=== PATIENT | female | born 1990 | race Caucasian/White ===

== ENCOUNTER → 2016-10-18 | Outpatient (CLI) | payer OTHER ==
[~2016-10-18] MED LIST: IBUP-103 PO; SPIR50TA2 PO
[2016-10-18 19:09] LABS: URINE APPEARANCE CLOUDY (CLEAR); URINE BILIRUBIN NEG (NEG); URINE COLOR YELLOW; URINE EPITHELIAL CELL AUTO >30 /lpf (0-5); URINE NITRITE POS (NEG); URINE SPECIFIC GRAVITY 1.024 (1.000-1.030); UROBILINOGEN NEG (NEG)
[2016-10-18 19:11] LABS: MANUAL MICROSCOPIC REQUIRED? NO; REVIEW REQ? NO
== END | disposition home or self-care (01) ==
LOC: C.LAB 17:11
PROVIDERS: ATTEND Obstetrics & Gynecology
DX: R30.0 Dysuria (principal)

== ENCOUNTER 2017-01-16 18:44 | Emergency (ER) | payer OTHER ==
[~2017-01-16] VITALS: Ht 162.6 cm; Wt 52.4 kg
[2017-01-16 18:59] VITALS: TEMP 36.7; Ht 162.6 cm; Wt 52.4 kg
--- NOTE | 2017-01-16 19:33 | DIAGNOSTIC IMAGING REPORT ---
CT OF THE HEAD WITHOUT CONTRAST CLINICAL HISTORY: Right side head injury, tinnitus. COMPARISON STUDY: No previous studies for comparison. CT DOSE: 537.48 mGy.cm TECHNIQUE: Helical axial images of the head were obtained without IV contrast. Automated exposure control was utilized for the study. FINDINGS: No acute intracranial hemorrhage, midline shift or mass effect is present. Ventricular system is normal. Basilar cisterns are patent. There are no extra-axial collections. Maldonado-white differentiation is maintained. There are no findings to suggest acute dural sinus thrombosis or acute territorial infarct. There is no calvarial fracture. IMPRESSION: 1. No acute intracranial findings. 2. No calvarial fracture. Electronically signed by: Joel West M.D. 01/16/2017 7:32 PM Dictated Date/Time: 01/16/2017 7:28 PM
--- NOTE | 2017-01-16 19:55 | EMERGENCY ROOM VISIT NOTE ---
ED Visit Note First contact with patient: 19:09 CHIEF COMPLAINT: Head injury HISTORY OF PRESENT ILLNESS: This 6-year-old female patient presented to the emergency department ambulatory, one day after receiving a head injury. The patient states last evening, she was mowing the grass with a push mower. She states there is a golf ball in the high grass, which got Up by the mower. She states the golfball flew into a tree, then came down and hit her on the right side of the head. The patient denies loss of consciousness, dizziness, lightheadedness, nausea, vomiting, or blurry vision. She states last evening, she felt "fuzzy". She states today, she has been feeling better, however her ears feel full and she is experiencing ringing in her ears. The headache has been constant, however she states the biggest concern is the ringing in her ears. The patient complains of sided, muscular neck pain, worse with turning her head to the right. She states the discomfort radiates into her right shoulder. The patient has taken Advil for the pain with minimal relief. The patient rates the pain as 6/10. The patient denies bowel or bladder dysfunction. The patient denies any other injuries. The patient states she is here for piece of mind that she does not have a brain bleed due to her symptoms. REVIEW OF SYSTEMS: A 10-system review of systems was performed with positives and pertinent negatives listed in the history of present illness. All other systems were reviewed and are negative. ALLERGIES: Tramadol MEDICATIONS: None PMH: None SOCIAL HISTORY: The patient lives locally with her family. She denies drug, alcohol, tobacco use. PHYSICAL EXAM: Vital Signs: Reviewed Nurse's notes, vital signs stable. GENERAL : 26-year-old female, in no acute distress, well-developed, well-nourished. NEURO: The patient is alert, oriented to person place and time, and coherent. Normal mini mental status exam. Negative Romberg and pronator drift. Cerebellar function intact. HEAD: Normocephalic, atraumatic. The patient does complain of tenderness on the right side, just anterior to the right ear. EYES: Pupils are equal round and reactive to light and accommodation. EOMs are full and optic discs and fundi are normal. There is no swelling or discoloration of the tissue surrounding the eyes. EARS: External auditory canals clear without blood. TM pearly osullivan. No hemotympanum. NOSE: Patent without tenderness. No septal hematoma. FACE: No facial bone tenderness. NECK: Supple. There is no cervical spine tenderness. There is right-sided cervical paraspinous muscle tenderness. The patient does have mild tenderness with movement of the neck. RADIOLOGY: CT Scan Head: FINDINGS: No acute intracranial hemorrhage, midline shift or mass effect is present. Ventricular system is normal. Basilar cisterns are patent. There are no extra-axial collections. Maldonado-white differentiation is maintained. There are no findings to suggest acute dural sinus thrombosis or acute territorial infarct. There is no calvarial fracture. IMPRESSION: 1. No acute intracranial findings. 2. No calvarial fracture. ED COURSE: I examined the patient. CT scan of the head was ordered , reviewed by myself and interpreted by radiologist. CT was negative for fracture or acute intracranial hemorrhage. I discussed these results with the patient and her at bedside. I discussed discharge instructions. The patient was discharged home in good condition ambulatory. DIFFERENTIAL DIAGNOSIS: Intracranial hemorrhage, skull fracture, TM rupture, tinnitus, headache, migraine, closed head injury or concussion, and others. DIAGNOSIS: Head injury, tinnitus DISCHARGE INSTRUCTIONS: You have been treated in the Emergency Department for a Closed Head Injury. CT Scan of your head/brain demonstrated no acute bleeding or other abnormalities. This does not completely rule out the risk for future damage to the brain. For pain control, you can use the following auds-cwo-daykbci medicines (if >12 yo): - Regular strength (325mg/tab) Tylenol (acetaminophen) 2 tabs every 4-6 hours as needed. Do not exceed 9 tablets in a 24 hour period. Avoid taking more than 3 grams (3000 mg) of Tylenol per day. This includes any other sources of acetaminophen you may take on a regular basis. - Regular strength (200 mg/tab) Advil (ibuprofen) 2-3 tabs every 4-6 hours as needed. Do not exceed a dose of 3200 mg per day. You may consider taking Benadryl or another antihistamine such as Zyrtec as directed on the packaging for tinnitus. You should relax in a quiet, dark place for the rest of the day. Avoid any possible triggers including: cigarette smoke, caffeine, nicotine, chocolate, wine, beer, loud noises or music, or bright lights. You should schedule a follow-up appointment in 2-3 days with your Primary Care Provider or established Neurologist for further evaluation and treatment of your Headache. Please avoid excessive physical activity until you're symptom free for at least 24 hours. You should speak with your PCP regarding return to physical activity. Return to the Emergency Department if your current symptoms worsen despite treatment course outlined above, or if you develop any of the following symptoms : intractable pain despite aforementioned treatment course, visual disturbances , loss of vision, unilateral weakness or facial drooping, slurring of speech, loss of coordination, or loss of consciousness. Current/Historical Medications No Active Prescriptions or Reported Meds Allergies Coded Allergies: Tramadol (Verified Allergy, Intermediate, ITCHING, 01/16/17) Vital Signs Date Time Temp Pulse Resp B/P (MAP) Pulse Ox O2 Delivery O2 Flow Rate FiO2 01/16/17 19:57 76 18 98/53 98 Room Air 01/16/17 18:59 36.7 85 18 120/83 100 Room Air Departure Information Impression Primary Impression: Closed head injury Additional Impression: Tinnitus of both ears Dispostion Home / Self-Care Condition GOOD Prescriptions No Active Prescriptions or Reported Meds Referrals Burt Dewitt D.O. (PCP) Patient Instructions ED Head Injury Closed, [facility], Tinnitus Additional Instructions You have been treated in the Emergency Department for a Closed Head Injury. CT Scan of your head/brain demonstrated no acute bleeding or other abnormalities. This does not completely rule out the risk for future damage to the brain. For pain control, you can use the following attz-mqt-rdxfiyp medicines (if >12 yo): - Regular strength (325mg/tab) Tylenol (acetaminophen) 2 tabs every 4-6 hours as needed. Do not exceed 9 tablets in a 24 hour period. Avoid taking more than 3 grams (3000 mg) of Tylenol per day. This includes any other sources of acetaminophen you may take on a regular basis. - Regular strength (200 mg/tab) Advil (ibuprofen) 2-3 tabs every 4-6 hours as needed. Do not exceed a dose of 3200 mg per day. You may consider taking Benadryl or another antihistamine such as Zyrtec as directed on the packaging for tinnitus. You should relax in a quiet, dark place for the rest of the day. Avoid any possible triggers including: cigarette smoke, caffeine, nicotine, chocolate, wine, beer, loud noises or music, or bright lights. You should schedule a follow-up appointment in 2-3 days with your Primary Care Provider or established Neurologist for further evaluation and treatment of your Headache. Please avoid excessive physical activity until you're symptom free for at least 24 hours. You should speak with your PCP regarding return to physical activity. Return to the Emergency Department if your current symptoms worsen despite treatment course outlined above, or if you develop any of the following symptoms : intractable pain despite aforementioned treatment course, visual disturbances , loss of vision, unilateral weakness or facial drooping, slurring of speech, loss of coordination, or loss of consciousness. Problem Qualifiers Primary Impression: Closed head injury Encounter type: initial encounter Qualified Codes: S09.90XA - Unspecified injury of head, initial encounter
[2017-01-16 19:57] VITALS: BP 98/53; PULSE 76; O2SAT 98
== END 2017-01-16 20:05 | disposition home or self-care (01) ==
LOC: C.EDB 18:45 → C.EDD 20:05
DX: S09.90XA Unspecified injury of head, initial encounter (principal); H93.13 Tinnitus, bilateral; W22.8XXA Striking against or struck by other objects, initial encounter; Y93.H9 Activity, other involving exterior property and land maintenance, building and construction; Y99.8 Other external cause status

== ENCOUNTER 2019-12-10 18:59 | Inpatient (IN) ==
[2019-12-10] MEDS ORDERED: OXYTOCIN 30 UNITS/500 ML BAG IV PRN ×2 (19:51)
--- NOTE | 2019-12-10 19:54 | Labor Progress Brief Note ---
Date of Service December 10, 2019 Subjective 29yo at 38 6/7 for riley bulb insertion prior to planned IOL tomorrow AM. Elective due to maternal discomfort. No c/o on arriving. Assessment & Plan (1) : Elective IOL with inadvertent AROM during riley balloon placement. Riley removed, patient to undergo IOL with pitocin at this point as [place] relatively favorable. Patient in agreement. Epidural on request. Weeks of gestation: 27 weeks Qualified Code(s): Z3A.27 - 27 weeks gestation of Physical Exam Physical Exam: FHT Cat 1. [place] rare ctx. Cvx 2/80/-2. Riley placed through cervix and SROM occurred for clear fluid. Riley removed. Patient advised of rupture and recommendation for admission with IOL to begin overnight. She is agreeable. Results & Data Vital Signs (Past 12 Hours) Vital Signs Temp Pulse Resp BP 12/10/19 19:37 98.6 F 18 12/10/19 19:08 18 12/10/19 19:04 92 H 123/85 Coding Level of Care Code None Diagnoses Z3A.27 Weeks of gestation: 27 weeks
[2019-12-10 20:15] LABS: Hematocrit (blood only) 38.6 % (37-47); Mean Corpuscular Hemoglobin 32.4 pg (25-34); Mean Corpuscular Volume 96.3 fL (80-100); Platelet Count 196 K/uL (130-400); RDW Coefficient of Variation 13.1 % (11.5-14.5); RDW Standard Deviation 45.5 fL (36.4-46.3); Red Blood Count 4.01 M/uL (4.2-5.4); White Blood Count 10.22 K/uL (4.8-10.8)
[2019-12-10] MEDS ORDERED: PROMETHAZINE HCL 6.25 MG in SODIUM CHLORIDE 0.9% 50 ML IV PRN (20:16)
[2019-12-10] MEDS ORDERED: NALBUPHINE HCL INJ 10 MG/ML AMP IV PRN (20:16)
[2019-12-10] MEDS ORDERED: ONDANSETRON INJ 2 MG/ML 2 ML VIAL IV PRN (20:16)
[2019-12-10] MEDS: LACTATED RINGER'S 1,000 ML IV PRN (20:16)
[2019-12-10] MEDS ORDERED: NALOXONE HCL 1 MG in SODIUM CHLORIDE 0.9% 1000ML 1,000 ML IV PRN (20:16)
[2019-12-10] MEDS ORDERED: DiphenhydrAMINE HCL 50 MG/ML VIAL IV PRN (20:16)
[2019-12-10] MEDS ORDERED: ePHEDrine sulfate 50 MG/ML AMP IV PRN (20:16)
[2019-12-10] MEDS ORDERED: NALOXONE HCL 0.4 MG/1 ML VIAL/CARP IV PRN (20:16)
[2019-12-10] MEDS ORDERED: fentaNYL 2MCG/ML ROPIV 1.25MG/ML 100 ML BAG EPI PRN (20:16)
--- NOTE | 2019-12-10 20:16 | Anesthesiology Consultation ---
Date of Service December 10, 2019 Assessment & Plan (1) Encounter for pre-operative examination: Chart Review Chart Review: Acceptable Risk for Surgery and Patient NOT seen in Pre Admission Testing Consults Requested none ASA ASA2 Proposed Anesthesia Anesthesia Type: Labor Epidural Risk / Benefits Reviewed With: PT / POA / Parent / Guardian, Accepts Plan and Informed Consent Obtained History Height/Weight Height: 5 ft 4 in Weight: 58.967 kg Allergies Allergy/AdvReac Type Severity Reaction Status Date / Time tramadol Allergy Intermediate ITCHING Verified 12/09/19 09:21 Medications Home Medications Medication Instructions Recorded Confirmed Last Taken PNV cmb#95-ferrous fumarate-FA 1 tab PO QAM 11/02/18 12/10/19 12/09/19 20:00 [] cholecalciferol (vitamin D3) 4,000 unit PO QAM 07/11/19 12/10/19 12/10/19 08:00 [Vitamin D3] magnesium oxide 200 mg PO QAM 07/11/19 12/10/19 12/10/19 08:00 riboflavin (vitamin B2) [Vitamin 0 mg PO QAM 09/22/19 12/10/19 12/10/19 08:00 B-2] NPO Date Last Intake of Fluids: 12/10/19 Time Last Intake of Fluids: 12:00 Date Last Intake of Solids: 12/10/19 Time Last Intake of Solids: 12:00 Past Medical History Medical History Contusion of foot (Resolved) Encounter for cosmetic surgery (Inactive) size inconsistent with dates H/O acne vulgaris (Inactive) H/O renal calculi Hx of migraines (Resolved) Hypokalemia Migraine without aura Right hip pain (Resolved) Exercise / Class Metabolic Activity II 4-5 Yardwork/Stairs/Walk up hill Past Family History Family History Grandmother (Maternal) Diabetes Hypertension Spwbj-Vyhepksqv-Vwpvd (WPW) pattern Grandmother (Paternal) Hypertrophic cardiomyopathy Stroke Father Hypertension Dyslipidemia Mitral valve prolapse Other No pertinent family history in first degree relatives Past Surgical History Surgical History H/O breast augmentation Past Anesthesia History No Hx of Anesthesia Complications and No Family Hx of Anesthesia Complications History of PONV No Hx of PONV and No Hx of Motion Sickness Social History Smoking Status: Never smoker Hx Alcohol Use: No Hx Substance Use: No substance use type: does not use Physical Exam Vital Signs Last Vital Signs Temp 37.0 C 12/10/19 19:37 Pulse 92 H 12/10/19 19:04 Resp 18 12/10/19 19:37 BP 123/85 12/10/19 19:04 ENMT Mouth: no dentition abnormality Thyromental Distance: > or= 3.5 Finger Breadths Mallampati Class: II Neck normal visual inspection Respiratory normal respiratory effort Auscultation: lungs clear to auscultation bilaterally Cardiovascular Rate/Rhythm: regular rate and regular rhythm Psychiatric Orientation: alert
[2019-12-10] MEDS ORDERED: BUPIVACAINE 0.25% 30 ML VIAL ONE (20:47)
[2019-12-10] MEDS ORDERED: ePHEDrine sulfate 50 MG/ML AMP ONE (20:47)
[2019-12-10] MEDS ORDERED: fentaNYL citrate 100 MCG/2 ML VIAL ONE (20:47)
[2019-12-10] MEDS ORDERED: fentaNYL 2MCG/ML ROPIV 1.25MG/ML 100 ML BAG EPI ONE (20:48)
[2019-12-10 21:00] LABS: Mean Corpuscular Hgb Conc 33.7 g/dL (32-36)
[2019-12-11] MEDS: LACTATED RINGER'S 1,000 ML IV PRN ×2 (00:03→08:21)
--- NOTE | 2019-12-11 01:51 | Labor Progress Brief Note ---
Date of Service December 11, 2019 Subjective Comfortable with epidural. Assessment & Plan (1) : Elective IOL, continue curr mgmt. Weeks of gestation: 27 weeks Qualified Code(s): Z3A.27 - 27 weeks gestation of Physical Exam Physical Exam: FHT Cat 1 [place] Q2 Pit @ 9 Cvx deferred. Results & Data Vital Signs (Past 12 Hours) Vital Signs Temp Pulse Resp BP Pulse Ox 12/11/19 01:48 67 96/72 L 12/11/19 01:47 84 100 12/11/19 01:42 88 100 12/11/19 01:36 69 100 12/11/19 01:34 65 109/60 12/11/19 01:31 51 L 99 12/11/19 01:26 53 L 99 12/11/19 01:21 52 L 99 12/11/19 01:19 50 L 95/60 L 12/11/19 01:16 52 L 99 12/11/19 01:11 59 L 99 12/11/19 01:06 58 L 100 12/11/19 01:05 61 105/55 L 12/11/19 01:01 62 18 100 12/11/19 01:00 97.7 F 18 12/11/19 00:56 62 100 12/11/19 00:51 57 L 100 12/11/19 00:49 64 95/63 L 12/11/19 00:46 63 100 12/11/19 00:41 66 100 12/11/19 00:36 60 100 12/11/19 00:35 55 L 89/51 L 12/11/19 00:31 58 L 98 12/11/19 00:26 57 L 99 12/11/19 00:21 59 L 91/55 L 99 12/11/19 00:16 54 L 100 12/11/19 00:11 63 99 12/11/19 00:06 78 100 12/11/19 00:03 64 102/68 12/11/19 00:01 74 100 12/11/19 00:00 18 12/10/19 23:56 80 100 12/10/19 23:51 70 100 12/10/19 23:48 59 L 106/68 12/10/19 23:46 72 99 12/10/19 23:41 67 100 12/10/19 23:36 63 100 12/10/19 23:33 89 103/69 12/10/19 23:31 65 100 12/10/19 23:30 18 12/10/19 23:26 84 100 12/10/19 23:21 70 100 12/10/19 23:18 64 104/67 12/10/19 23:16 74 100 12/10/19 23:11 77 100 12/10/19 23:06 58 L 100 12/10/19 23:04 61 107/70 12/10/19 23:01 63 18 100 12/10/19 23:00 18 12/10/19 22:59 97.7 F 18 12/10/19 22:56 53 L 99 12/10/19 22:51 101 H 100 12/10/19 22:49 107 H 98/68 L 12/10/19 22:46 63 100 12/10/19 22:41 98 H 100 12/10/19 22:36 62 100 12/10/19 22:35 73 111/69 12/10/19 22:31 66 18 99 12/10/19 22:30 18 12/10/19 22:26 65 100 12/10/19 22:21 64 100 12/10/19 22:20 83 100/65 12/10/19 22:16 66 100 12/10/19 22:11 66 100 12/10/19 22:06 71 100 12/10/19 22:03 71 106/67 12/10/19 22:01 71 100 12/10/19 22:00 18 12/10/19 21:56 79 100 12/10/19 21:51 98 H 100 12/10/19 21:48 93 H 108/67 12/10/19 21:46 68 100 12/10/19 21:41 84 100 12/10/19 21:36 71 100 12/10/19 21:34 72 109/66 12/10/19 21:31 76 100 12/10/19 21:30 18 12/10/19 21:26 77 100 12/10/19 21:21 73 100 12/10/19 21:18 71 110/67 12/10/19 21:16 75 100 12/10/19 21:15 18 12/10/19 21:11 84 100 12/10/19 21:06 94 H 100 12/10/19 21:02 76 112/69 12/10/19 21:01 75 100 12/10/19 21:00 98.4 F 78 18 120/77 12/10/19 20:58 79 112/67 12/10/19 20:56 82 118/73 100 12/10/19 20:55 18 12/10/19 20:54 93 H 112/71 12/10/19 20:52 83 118/76 12/10/19 20:51 80 100 12/10/19 20:50 78 18 117/72 12/10/19 20:48 82 113/70 12/10/19 20:46 98 H 108/74 100 12/10/19 20:44 79 120/68 12/10/19 20:42 76 117/88 12/10/19 20:41 91 H 100 12/10/19 20:36 87 100 12/10/19 20:31 81 100 12/10/19 19:37 98.6 F 18 12/10/19 19:08 18 12/10/19 19:04 92 H 123/85 Coding Level of Care Code None Diagnoses Z3A.27 Weeks of gestation: 27 weeks
--- NOTE | 2019-12-11 07:20 | Labor Progress Brief Note ---
Date of Service December 11, 2019 Subjective Comfortable with epidural. Assessment & Plan (1) : Cont IOL, anticipate . Weeks of gestation: 27 weeks Qualified Code(s): Z3A.27 - 27 weeks gestation of Physical Exam Physical Exam: Cvx 9/100/+1 FHT Cat 1 w/ early decels on ctx [place] Q2m Results & Data Vital Signs (Past 12 Hours) Vital Signs Temp Pulse Resp BP Pulse Ox 12/11/19 07:17 72 100 12/11/19 07:12 73 100 12/11/19 07:07 74 100 12/11/19 07:05 86 93 12/11/19 07:04 75 113/77 12/11/19 07:02 94 H 100 12/11/19 06:59 71 93 12/11/19 06:57 97 H 100 12/11/19 06:52 83 97 12/11/19 06:49 69 125/75 12/11/19 06:47 103 H 100 12/11/19 06:42 76 100 12/11/19 06:37 86 100 12/11/19 06:34 70 116/78 12/11/19 06:32 88 100 12/11/19 06:27 115 H 100 12/11/19 06:24 18 12/11/19 06:22 58 L 100 12/11/19 06:20 63 116/76 12/11/19 06:17 75 100 12/11/19 06:12 119 H 100 12/11/19 06:07 103 H 100 12/11/19 06:04 77 103/70 12/11/19 06:02 65 100 12/11/19 05:57 83 100 12/11/19 05:55 82 89 L 12/11/19 05:52 92 H 100 12/11/19 05:48 108 H 89/62 L 12/11/19 05:47 105 H 100 12/11/19 05:42 97.7 F 101 H 18 100 12/11/19 05:37 57 L 100 12/11/19 05:34 59 L 111/65 12/11/19 05:32 78 100 12/11/19 05:27 75 100 12/11/19 05:22 74 100 12/11/19 05:20 102 H 91 12/11/19 05:19 63 114/70 12/11/19 05:17 81 100 12/11/19 05:12 65 99 12/11/19 05:07 69 100 12/11/19 05:05 76 98/59 L 12/11/19 05:02 66 99 12/11/19 04:57 70 100 12/11/19 04:52 65 100 12/11/19 04:50 64 113/62 12/11/19 04:47 93 H 100 12/11/19 04:42 69 100 12/11/19 04:37 68 100 12/11/19 04:35 73 102/63 12/11/19 04:32 77 100 12/11/19 04:27 83 100 12/11/19 04:22 68 100 12/11/19 04:18 77 111/71 12/11/19 04:17 77 100 12/11/19 04:12 84 100 12/11/19 04:08 79 90 12/11/19 04:07 63 100 12/11/19 04:04 72 107/62 12/11/19 04:02 97.7 F 65 18 100 12/11/19 03:57 68 100 12/11/19 03:52 78 100 12/11/19 03:51 89 18 92 12/11/19 03:49 78 106/68 12/11/19 03:47 95 H 100 12/11/19 03:42 66 100 12/11/19 03:37 67 100 12/11/19 03:32 76 100 12/11/19 03:27 73 100 12/11/19 03:23 78 89 L 12/11/19 03:22 69 100 12/11/19 03:18 72 117/76 12/11/19 03:17 74 100 12/11/19 03:12 78 100 12/11/19 03:07 77 100 12/11/19 03:03 73 113/75 12/11/19 03:02 63 94 12/11/19 03:00 69 91 12/11/19 02:57 61 100 12/11/19 02:52 73 100 12/11/19 02:50 57 L 114/73 12/11/19 02:47 63 100 12/11/19 02:42 65 100 12/11/19 02:37 60 100 12/11/19 02:34 62 110/73 12/11/19 02:32 64 100 12/11/19 02:30 18 12/11/19 02:27 69 100 12/11/19 02:22 66 100 12/11/19 02:18 52 L 115/80 12/11/19 02:17 61 100 12/11/19 02:12 63 100 12/11/19 02:07 65 100 12/11/19 02:03 65 124/74 12/11/19 02:02 85 100 12/11/19 01:57 84 100 12/11/19 01:52 66 100 12/11/19 01:48 67 96/72 L 12/11/19 01:47 84 100 12/11/19 01:42 88 100 12/11/19 01:36 69 100 12/11/19 01:34 65 109/60 12/11/19 01:31 51 L 99 12/11/19 01:26 53 L 99 12/11/19 01:21 52 L 99 12/11/19 01:19 50 L 95/60 L 12/11/19 01:16 52 L 99 12/11/19 01:11 59 L 99 12/11/19 01:06 58 L 100 12/11/19 01:05 61 105/55 L 12/11/19 01:01 62 18 100 12/11/19 01:00 97.7 F 18 12/11/19 00:56 62 100 12/11/19 00:51 57 L 100 12/11/19 00:49 64 95/63 L 12/11/19 00:46 63 100 12/11/19 00:41 66 100 12/11/19 00:36 60 100 12/11/19 00:35 55 L 89/51 L 12/11/19 00:31 58 L 98 12/11/19 00:26 57 L 99 12/11/19 00:21 59 L 91/55 L 99 12/11/19 00:16 54 L 100 12/11/19 00:11 63 99 12/11/19 00:06 78 100 12/11/19 00:03 64 102/68 12/11/19 00:01 74 100 12/11/19 00:00 18 12/10/19 23:56 80 100 12/10/19 23:51 70 100 12/10/19 23:48 59 L 106/68 06/09/20 23:46 72 99 12/10/19 23:41 67 100 12/10/19 23:36 63 100 12/10/19 23:33 89 103/69 12/10/19 23:31 65 100 12/10/19 23:30 18 12/10/19 23:26 84 100 12/10/19 23:21 70 100 12/10/19 23:18 64 104/67 12/10/19 23:16 74 100 12/10/19 23:11 77 100 12/10/19 23:06 58 L 100 12/10/19 23:04 61 107/70 12/10/19 23:01 63 18 100 12/10/19 23:00 18 12/10/19 22:59 97.7 F 18 12/10/19 22:56 53 L 99 12/10/19 22:51 101 H 100 12/10/19 22:49 107 H 98/68 L 12/10/19 22:46 63 100 12/10/19 22:41 98 H 100 12/10/19 22:36 62 100 12/10/19 22:35 73 111/69 12/10/19 22:31 66 18 99 12/10/19 22:30 18 12/10/19 22:26 65 100 12/10/19 22:21 64 100 12/10/19 22:20 83 100/65 12/10/19 22:16 66 100 12/10/19 22:11 66 100 12/10/19 22:06 71 100 12/10/19 22:03 71 106/67 12/10/19 22:01 71 100 12/10/19 22:00 18 12/10/19 21:56 79 100 12/10/19 21:51 98 H 100 12/10/19 21:48 93 H 108/67 12/10/19 21:46 68 100 12/10/19 21:41 84 100 12/10/19 21:36 71 100 12/10/19 21:34 72 109/66 12/10/19 21:31 76 100 12/10/19 21:30 18 12/10/19 21:26 77 100 12/10/19 21:21 73 100 12/10/19 21:18 71 110/67 12/10/19 21:16 75 100 12/10/19 21:15 18 12/10/19 21:11 84 100 12/10/19 21:06 94 H 100 12/10/19 21:02 76 112/69 12/10/19 21:01 75 100 12/10/19 21:00 98.4 F 78 18 120/77 12/10/19 20:58 79 112/67 12/10/19 20:56 82 118/73 100 12/10/19 20:55 18 12/10/19 20:54 93 H 112/71 12/10/19 20:52 83 118/76 12/10/19 20:51 80 100 12/10/19 20:50 78 18 117/72 12/10/19 20:48 82 113/70 12/10/19 20:46 98 H 108/74 100 12/10/19 20:44 79 120/68 12/10/19 20:42 76 117/88 12/10/19 20:41 91 H 100 12/10/19 20:36 87 100 12/10/19 20:31 81 100 12/10/19 19:37 98.6 F 18 Coding Level of Care Code None Diagnoses Z3A.27 Weeks of gestation: 27 weeks
--- NOTE | 2019-12-11 09:04 | Labor Progress Brief Note ---
Date of Service December 11, 2019 Subjective Reason For Note: Other (change of shift note) The patient is a 29-year-old 1 para 0 at 39 weeks gestational age. Patient had been scheduled for an elective induction on this date. She presented last evening for cervical ripening with cervical Gutierrez. She had spontaneous rupture of membranes during placement of the Gutierrez. Induction was initiated. Patient has done well. Tracing has been reassuring. She has an epidural. Assessment & Plan (1) Supervision of normal intrauterine in primigravida: - heart rate tracing category 2 with variability and accelerations -Patient to begin second stage -Anticipate vaginal delivery Physical Exam Genitourinary: Cervix: Complete/+2 Results & Data Vital Signs (Past 12 Hours) Vital Signs Temp Pulse Resp BP Pulse Ox 12/11/19 08:58 73 92 12/11/19 08:57 72 96 12/11/19 08:52 106 H 97 12/11/19 08:48 97.7 F 69 20 130/76 12/11/19 08:47 109 H 100 12/11/19 08:42 74 100 12/11/19 08:37 63 100 12/11/19 08:32 70 100 12/11/19 08:29 65 93 12/11/19 08:27 63 100 12/11/19 08:22 74 100 12/11/19 08:19 67 104/59 L 12/11/19 08:17 71 100 12/11/19 08:12 62 100 12/11/19 08:07 59 L 99 12/11/19 08:06 58 L 94 12/11/19 08:04 62 108/61 12/11/19 08:02 59 L 100 12/11/19 07:57 69 100 12/11/19 07:52 72 100 12/11/19 07:48 68 102/62 12/11/19 07:47 68 100 12/11/19 07:42 67 100 12/11/19 07:37 73 100 12/11/19 07:34 72 102/64 12/11/19 07:32 73 100 12/11/19 07:27 78 100 12/11/19 07:22 70 100 12/11/19 07:19 97.5 F L 76 16 93/55 L 12/11/19 07:17 72 100 12/11/19 07:12 73 100 12/11/19 07:07 74 100 12/11/19 07:05 86 93 12/11/19 07:04 75 113/77 12/11/19 07:02 94 H 100 12/11/19 06:59 71 93 12/11/19 06:57 97 H 100 12/11/19 06:52 83 97 12/11/19 06:49 69 125/75 12/11/19 06:47 103 H 100 12/11/19 06:42 76 100 12/11/19 06:37 86 100 12/11/19 06:34 70 116/78 12/11/19 06:32 88 100 12/11/19 06:27 115 H 100 12/11/19 06:24 18 12/11/19 06:22 58 L 100 12/11/19 06:20 63 116/76 12/11/19 06:17 75 100 12/11/19 06:12 119 H 100 12/11/19 06:07 103 H 100 12/11/19 06:04 77 103/70 12/11/19 06:02 65 100 12/11/19 05:57 83 100 12/11/19 05:55 82 89 L 12/11/19 05:52 92 H 100 12/11/19 05:48 108 H 89/62 L 12/11/19 05:47 105 H 100 12/11/19 05:42 97.7 F 101 H 18 100 12/11/19 05:37 57 L 100 12/11/19 05:34 59 L 111/65 12/11/19 05:32 78 100 12/11/19 05:27 75 100 12/11/19 05:22 74 100 12/11/19 05:20 102 H 91 12/11/19 05:19 63 114/70 12/11/19 05:17 81 100 12/11/19 05:12 65 99 12/11/19 05:07 69 100 12/11/19 05:05 76 98/59 L 12/11/19 05:02 66 99 12/11/19 04:57 70 100 12/11/19 04:52 65 100 12/11/19 04:50 64 113/62 12/11/19 04:47 93 H 100 12/11/19 04:42 69 100 12/11/19 04:37 68 100 06/10/20 04:35 73 102/63 12/11/19 04:32 77 100 12/11/19 04:27 83 100 12/11/19 04:22 68 100 12/11/19 04:18 77 111/71 12/11/19 04:17 77 100 12/11/19 04:12 84 100 12/11/19 04:08 79 90 12/11/19 04:07 63 100 12/11/19 04:04 72 107/62 12/11/19 04:02 97.7 F 65 18 100 12/11/19 03:57 68 100 12/11/19 03:52 78 100 12/11/19 03:51 89 18 92 12/11/19 03:49 78 106/68 12/11/19 03:47 95 H 100 12/11/19 03:42 66 100 12/11/19 03:37 67 100 12/11/19 03:32 76 100 12/11/19 03:27 73 100 12/11/19 03:23 78 89 L 12/11/19 03:22 69 100 12/11/19 03:18 72 117/76 12/11/19 03:17 74 100 12/11/19 03:12 78 100 12/11/19 03:07 77 100 12/11/19 03:03 73 113/75 12/11/19 03:02 63 94 12/11/19 03:00 69 91 12/11/19 02:57 61 100 12/11/19 02:52 73 100 12/11/19 02:50 57 L 114/73 12/11/19 02:47 63 100 12/11/19 02:42 65 100 12/11/19 02:37 60 100 12/11/19 02:34 62 110/73 12/11/19 02:32 64 100 12/11/19 02:30 18 12/11/19 02:27 69 100 12/11/19 02:22 66 100 12/11/19 02:18 52 L 115/80 12/11/19 02:17 61 100 12/11/19 02:12 63 100 12/11/19 02:07 65 100 12/11/19 02:03 65 124/74 12/11/19 02:02 85 100 12/11/19 01:57 84 100 06/10/20 01:52 66 100 12/11/19 01:48 67 96/72 L 12/11/19 01:47 84 100 12/11/19 01:42 88 100 12/11/19 01:36 69 100 12/11/19 01:34 65 109/60 12/11/19 01:31 51 L 99 12/11/19 01:26 53 L 99 12/11/19 01:21 52 L 99 12/11/19 01:19 50 L 95/60 L 12/11/19 01:16 52 L 99 12/11/19 01:11 59 L 99 12/11/19 01:06 58 L 100 12/11/19 01:05 61 105/55 L 12/11/19 01:01 62 18 100 12/11/19 01:00 97.7 F 18 12/11/19 00:56 62 100 12/11/19 00:51 57 L 100 12/11/19 00:49 64 95/63 L 12/11/19 00:46 63 100 12/11/19 00:41 66 100 12/11/19 00:36 60 100 12/11/19 00:35 55 L 89/51 L 12/11/19 00:31 58 L 98 12/11/19 00:26 57 L 99 12/11/19 00:21 59 L 91/55 L 99 12/11/19 00:16 54 L 100 12/11/19 00:11 63 99 12/11/19 00:06 78 100 12/11/19 00:03 64 102/68 12/11/19 00:01 74 100 12/11/19 00:00 18 12/10/19 23:56 80 100 12/10/19 23:51 70 100 12/10/19 23:48 59 L 106/68 12/10/19 23:46 72 99 12/10/19 23:41 67 100 12/10/19 23:36 63 100 12/10/19 23:33 89 103/69 12/10/19 23:31 65 100 12/10/19 23:30 18 12/10/19 23:26 84 100 12/10/19 23:21 70 100 12/10/19 23:18 64 104/67 12/10/19 23:16 74 100 12/10/19 23:11 77 100 12/10/19 23:06 58 L 100 12/10/19 23:04 61 107/70 12/10/19 23:01 63 18 100 12/10/19 23:00 18 12/10/19 22:59 97.7 F 18 12/10/19 22:56 53 L 99 12/10/19 22:51 101 H 100 12/10/19 22:49 107 H 98/68 L 12/10/19 22:46 63 100 12/10/19 22:41 98 H 100 12/10/19 22:36 62 100 12/10/19 22:35 73 111/69 12/10/19 22:31 66 18 99 12/10/19 22:30 18 12/10/19 22:26 65 100 12/10/19 22:21 64 100 12/10/19 22:20 83 100/65 12/10/19 22:16 66 100 12/10/19 22:11 66 100 12/10/19 22:06 71 100 12/10/19 22:03 71 106/67 12/10/19 22:01 71 100 12/10/19 22:00 18 12/10/19 21:56 79 100 12/10/19 21:51 98 H 100 12/10/19 21:48 93 H 108/67 12/10/19 21:46 68 100 12/10/19 21:41 84 100 12/10/19 21:36 71 100 12/10/19 21:34 72 109/66 12/10/19 21:31 76 100 12/10/19 21:30 18 12/10/19 21:26 77 100 12/10/19 21:21 73 100 12/10/19 21:18 71 110/67 12/10/19 21:16 75 100 12/10/19 21:15 18 12/10/19 21:11 84 100 12/10/19 21:06 94 H 100 Coding Level of Care Code None Diagnoses Supervision of normal intrauterine in primigravida Z34.00
--- NOTE | 2019-12-11 10:39 | Delivery Summary ---
Vaginal Delivery Summary Date of Service December 11, 2019 Vaginal Delivery Summary Pre-operative Diagnosis: at 39 weeks ivf elective induction Post-operative Diagnosis: same Procedure: cervical riley epidural arom bilateral labial lacs and repair EBL: 350cc Anesthesia: epidural Procedure: The patient pushed for about one hour and 15 min to deliver a viable male in lindsey position. The nose and mouth were bulb suctioned on the perineum and the rest of the infant was then delivered without difficulty. The baby was vigorous. The nose and mouth were again bulb suctioned and the infant was placed in the maternal abdomen for drying and attention. Cord was clamped and cut at one minute of life. Cord blood and segment obtained. Placenta delivered spontaneous, intact with a three vessel cord. Cervix/sulci/rectum were intact. bilateral labial lacerations was repaired in the normal standard fashion. Hemostasis obtained with dilute pitocin and fundal massage. Apgars were 8/9. Mother and baby doing well at the end of the delivery. [facility] Vaginal Delivery Charge Vaginal Delivery Codes: 85612 global code for the antepartum, delivery, and post-
--- NOTE | 2019-12-11 10:45 | Anesthesia Procedure Note ---
Date of Service December 11, 2019 Anesthesia Post Epidural Note Vital Signs Vital Signs: Temp Pulse Resp BP Pulse Ox 36.5 C 80 20 131/75 94 12/11/19 08:48 12/11/19 10:36 12/11/19 08:48 12/11/19 10:36 12/11/19 10:24 Notes Mental Status: alert / awake / arousable and participated in evaluation Nausea / Vomiting: adequately controlled Pain: adequately controlled Airway Patency, RR, SpO2: stable & adequate BP & HR: stable & adequate Hydration State: stable & adequate Neuraxial Anesthesia: was administered and sensory block is resolving Anesthetic Complications: no major complications apparent Epidural: Removed without complications and With tip intact
[2019-12-11] MEDS ORDERED: ACETAMINOPHEN 325 MG TAB PO PRN (10:49)
[2019-12-11] MEDS ORDERED: HYDROCORTISONE ACETATE 25 MG SUPP PR PRN (10:49)
[2019-12-11] MEDS ORDERED: BENZOCAINE 20% AER SPR 82.5 GM CAN EXT PRN (10:49)
[2019-12-11] MEDS ORDERED: DIPHTHERIA/TETANUS/PERTUSSIS 0.5 ML SYR/VIAL IM ONE (10:49)
[2019-12-11] MEDS ORDERED: SUPERCREAM 0.870% 15 GM JAR EXT PRN (10:49)
[2019-12-11] MEDS ORDERED: OXYTOCIN 30 UNITS/500 ML BAG IV PRN (10:49)
[2019-12-11] MEDS ORDERED: ACETAMINOPHEN W/CODEINE #3 1 TAB PO PRN (10:49)
[2019-12-11] MEDS: IBUPROFEN 600 MG TAB PO PRN ×3 (12:46→22:14)
[2019-12-11] MEDS: DOCUSATE SODIUM 100 MG CAP PO SCH (20:55)
[2019-12-12] MEDS: IBUPROFEN 600 MG TAB PO PRN ×5 (03:28→21:54)
--- NOTE | 2019-12-12 06:40 | Obstetrical Progress Note ---
Date of Service <Favian Catherineconcetta - Last Filed: 12/12/19 06:40> December 12, 2019 Assessment & Plan <Favian Fitch DO - Last Filed: 12/12/19 06:40> (1) : -PPD#1 -Vitals reviewed, WNL - GBS -, Blood Type O+ - Clinically stable. - Feels well today. Eating well, voiding well, ambulating well. - Pain well controlled. - Routine post- care - After discharge will have [address] Villalobos. Weeks of gestation: 27 weeks Qualified Code(s): Z3A.27 - 27 weeks gestation of Day #:: 1 Subjective <Favian Catherineconcetta - Last Filed: 12/12/19 06:40> Ambulation: ambulating normally Voiding: no voiding problems Passing Gas:: Yes Diet Tolerance:: regular diet Lochia:: Moderate Feeding Type:: breast feeding Current Pain Level(1-10): 5 (improves wiwth analgesics) Patient is a 29 PPD#1. Patient states that she feels more "crampy" this AM and that she can "definitely tell what happened yesterday." She notes that her pain is relatively controlled with Motrin. She does attribute a slight headache, but notes it feels as though it is due to her not getting enough sleep. She also notes a history of migraines during the . She has no increased swelling or RUQ abdominal pain. Constitutional: no fever and no chills Respiratory: no cough, no dyspnea and no wheezing Cardiovascular: no chest pain, no dyspnea, no palpitations, no edema and no calf pain Breast: + breast pain (nipple pain with feeding) Gastrointestinal: no abdominal pain, no nausea and no vomiting Genitourinary (female): no dysuria and no difficulty urinating Neurologic: + headache(s) Physical Exam <Favian Catherineconcetta DO [place] Last Filed: 12/12/19 06:40> Constitutional WD/WN, vitals as above Respiratory normal respiratory effort, lungs clear to auscultation Cardiovascular Rate/Rhythm: regular rate and regular rhythm Heart Sounds: normal S1 and normal S2; no click, no gallop, no murmur and no cardiac rub Extremities: + edema (trace); no calf tenderness Gastrointestinal (Abdomen) Inspection/Auscultation: abdomen normal to inspection and normal bowel sounds Percussion/Palpation: abdomen soft; abdomen nontender Genitourinary OB Exam Abdomen: + fundal height Fundus: + firm and + relation to umbilicus (1cm below ); not tender and not boggy Results & Data <Favian Fitch DO - Last Filed: 12/12/19 06:40> Vital Signs (Past 12 Hours) Vital Signs Temp Pulse Resp BP 12/12/19 04:00 36.8 C 73 20 109/71 12/12/19 00:00 36.8 C 74 18 91/55 L 12/11/19 19:50 36.7 C 77 18 116/79 <Porfirio Villalobos Jr, MD, FACOG - Last Filed: 12/12/19 07:47> Co-Signing Physician Notes Resident Physician Supervision Note: I was present with Dr. Fitch during the history and exam. I discussed the case with the resident and agree with the findings and plan as documented in the note. Any exceptions or clarifications are listed here: Doing well, routine care. Documented By: Porfirio Villalobos Jr, MD, FACOG Resident Activity Tracking <Favian Fitch DO - Last Filed: 12/12/19 06:40> Resident Involvement: Resident Care Provided Care Provided: OB Delivery
[2019-12-12 06:42] LABS: Hematocrit (blood only) 35.5 % (37-47); Hemoglobin 12.4 g/dL (12.0-16.0); Mean Corpuscular Hemoglobin 33.9 pg (25-34); Mean Corpuscular Hgb Conc 34.9 g/dL (32-36); Mean Platelet Volume 10.1 fL (7.4-10.4); Platelet Count 168 K/uL (130-400); RDW Coefficient of Variation 13.2 % (11.5-14.5); RDW Standard Deviation 46.2 fL (36.4-46.3); Red Blood Count 3.66 M/uL (4.2-5.4); White Blood Count 15.13 K/uL (4.8-10.8)
[2019-12-12] MEDS: PRENATAL VITAMIN 1 TAB PO SCH (07:41)
[2019-12-12] MEDS: FERROUS SULFATE 325 MG TAB PO SCH (07:41)
[2019-12-12] MEDS: DOCUSATE SODIUM 100 MG CAP PO SCH ×2 (07:42→20:29)
[2019-12-12] MEDS ORDERED: bisacodyL 5 MG TABEC PO SCH (20:00)
[2019-12-13] MEDS: IBUPROFEN 600 MG TAB PO PRN ×3 (02:55→11:04)
--- NOTE | 2019-12-13 06:37 | Obstetrical Progress Note ---
Date of Service <Favian Fitch DO - Last Filed: 12/13/19 06:37> December 13, 2019 Assessment & Plan <Favian Fitch DO - Last Filed: 12/13/19 06:37> (1) : -PPD#2 -Vitals reviewed, WNL - GBS -, Blood Type O+ - Clinically stable. - Feels well today. Eating well, voiding well, ambulating well. - Pain well controlled. - Routine post- care - Discharge instructions reviewed with patient this AM. - After discharge will have [address] Sevilla. Weeks of gestation: 27 weeks Qualified Code(s): Z3A.27 - 27 weeks gestation of Day #:: 2 Subjective <Favian Fitch DO - Last Filed: 12/13/19 06:37> Ambulation: ambulating normally Voiding: no voiding problems Passing Gas:: Yes Diet Tolerance:: regular diet Lochia:: Moderate Feeding Type:: breast feeding Current Pain Level(1-10): 2 (improved with analgesics) Patient is a 29 PPD#2. Patient states that she is feeling well today and that her pain is well controlled. She has no other complaints at this time. Constitutional: no fever and no chills Respiratory: no cough, no dyspnea and no wheezing Cardiovascular: no chest pain, no dyspnea, no palpitations, no edema and no calf pain Breast: + breast pain (nipple pain with feeding) Gastrointestinal: no abdominal pain, no nausea and no vomiting Genitourinary (female): no dysuria and no difficulty urinating Neurologic: no headache(s) Physical Exam <Favian Catherineconcetta DO [place] Last Filed: 12/13/19 06:37> Constitutional WD/WN, vitals as above Respiratory normal respiratory effort, lungs clear to auscultation Cardiovascular Rate/Rhythm: regular rate and regular rhythm Heart Sounds: normal S1 and normal S2; no click, no gallop, no murmur and no cardiac rub Extremities: no calf tenderness and no edema Gastrointestinal (Abdomen) Inspection/Auscultation: abdomen normal to inspection and normal bowel sounds Percussion/Palpation: abdomen soft; abdomen nontender Genitourinary OB Exam Abdomen: + fundal height Fundus: + firm and + relation to umbilicus (2cm below ); not tender and not boggy Results & Data <Favian Fitch DO - Last Filed: 12/13/19 06:37> Vital Signs (Past 12 Hours) Vital Signs Temp Pulse Resp BP BP Pulse Ox 12/12/19 23:10 36.3 C L 61 16 113/66 98 12/12/19 21:30 36.6 C 61 18 112/75 <Bonny Sevilla MD, FACOG - Last Filed: 12/13/19 07:28> Co-Signing Physician Notes Resident Physician Supervision Note: I interviewed and examined the patient. Discussed with Dr. Fitch and agree with findings and plan as documented in the note. Any exceptions or clarifications are listed here: Doing well. Plan d/c. Instructions given. Documented By: Bonny Sevilla MD, FACOG Resident Activity Tracking <Favian Fitch DO - Last Filed: 12/13/19 06:37> Resident Involvement: Resident Care Provided Care Provided: OB Delivery
[2019-12-13 07:05] LABS: Hematocrit (blood only) 39.6 % (37-47); Hemoglobin 13.6 g/dL (12.0-16.0)
[2019-12-13] MEDS: PRENATAL VITAMIN 1 TAB PO SCH (07:31)
[2019-12-13] MEDS: DOCUSATE SODIUM 100 MG CAP PO SCH (07:31)
[2019-12-13] MEDS: FERROUS SULFATE 325 MG TAB PO SCH (07:31)
== END 2019-12-13 12:15 | disposition home or self-care (01) | DRG 807 ==
LOC: OPB 18:59 → 4S1 19:02 → 4S2 12-11 13:14

== ENCOUNTER 2021-09-29 08:55 | Inpatient (IN) ==
[2021-09-29] MEDS ORDERED: OXYTOCIN 30 UNITS/500 ML BAG IV PRN ×3 (09:03→15:37)
[2021-09-29] MEDS: LACTATED RINGER'S 1,000 ML IV PRN ×2 (09:10→13:40)
--- NOTE | 2021-09-29 09:29 | History & Physical Report ---
Date of Service September 29, 2021 Assessment & Plan (1) Encounter for supervision of normal in multigravida: Plan: Pt is a 31 y/o female presenting to L&D at 39 weeks gestation for IOL. -Admit to L&D for IOL -Anticipate -Augment with pitocin -Epidural available if/when needed Admission and Anticipated Discharge Date Admission Date: September 29, 2021 History of Present Illness Chief Complaint: Induction of Labor Primary Care Provider: Moira Dewitt Pt is a 31 y/o female presenting to L&D at 39 weeks gestation for IOL. complicated by IUGR which was resolved on 09/09/21 and was followed by MFM. Pt received routine care. GBS-. Reports mild contractions every 5-10 minutes. Pt did have some dark red discharge this morning but feels it was from her exam in the office yesterday. No gush of fluid or bloody show/mucus plug. Doing well overall. Will be using an epidural when labor progresses. No other complaints at this time. OB Labs: Blood Type O Positive 03/02/21 Antibody Screen NEGATIVE 02/24/21 Hemoglobin 13.1 g/dL (12.0-16.0) 09/07/21 Hematocrit 38.0 % (37-47) 09/07/21 Mean Corpuscular Volume 96.7 fL (80-100) 09/07/21 Platelet Count 167 K/uL (130-400) 09/07/21 Varicella-Zoster IgG Antibody 876.80 INDEX 03/15/19 Rubella IgG Antibody Immune (Immune) 02/24/21 Rapid Plasma Reagin Nonreactive (Nonreactive) 02/24/21 Hepatitis B Surface Antigen Neg (Neg) 02/24/21 HIV (1&2) Ab and P24 Ag, 4th Gener Neg (Neg) 02/24/21 Glucose 1 Hour 50 gm Load 140 mg/dl (70-130) H 07/12/21 OB Optional Labs: Chlamydia trachomatis RNA NOT DETECTED (NOT DETECTED) 02/24/21 Neisseria gonorrhoeae RNA NOT DETECTED (NOT DETECTED) 02/24/21 Thyroid Stimulating Hormone (TSH) 0.835 uIu/ml (0.300-4.500) 11/10/20 Allergies Allergy/AdvReac Type Severity Reaction Status Date / Time tramadol Allergy Intermediate ITCHING Verified 09/28/21 14:50 Home Medications Medication Instructions Recorded Confirmed Type cholecalciferol (vitamin D3) 50 50 mcg PO QAM 03/02/21 09/29/21 History mcg (2,000 unit) capsule (Vitamin D3) magnesium oxide 250 mg PO QAM 03/02/21 09/29/21 History prenat.vits,rip,pyw-ktqi-idiya 1 tab PO QAM 03/02/21 09/29/21 History (KPN) riboflavin (vitamin B2) 400 mg 400 mg PO QAM 03/02/21 09/28/21 History tablet ondansetron 4 mg disintegrating 4 mg PO Q6H PRN #12 tab 09/07/21 09/28/21 Rx tablet promethazine 25 mg tablet 25 mg PO Q6H PRN #10 tab 09/07/21 09/28/21 Rx Patient History Medical History Asthma childhood Contusion of foot Encounter for cosmetic procedure Encounter for cosmetic surgery size inconsistent with dates Flank pain in patient H/O acne vulgaris H/O renal calculi History of chicken pox Hx of migraines Hypokalemia Migraine without aura Paroxysmal SVT (supraventricular tachycardia) Right hip pain SOB (shortness of breath) 08/26 had echo for SOB, chest pain and palpitations- showed vena cava collapse due 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 Surgical History H/O breast augmentation History of surgery on arm Ulnar nerve transposition S/P cystoscopy with ureteral stent placement Family History Grandmother (Maternal) Diabetes Hypertension Kmnby-Kxpcwroat-Vmjdv (WPW) pattern Grandmother (Paternal) Hypertrophic cardiomyopathy Stroke Father Hypertension Dyslipidemia Mitral valve prolapse Diabetes Other No pertinent family history in first degree relatives Denies family history of Ovarian cancer Prostate cancer Breast cancer Colorectal cancer Social History Smoking Status: Never smoker Second Hand Exposure: No; Hx Alcohol Use: No Hx Substance Use: No Preferred Language: Polish Communication Ability: Effective Visual Impairment: No Limitations Hearing Ability: Normal 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 Beliefs That Will Affect Care: None marital status: marital status details: Guy Mensah (34) [phone] Current Living Situation: Spouse and Family Current Living Situation Comment: and son current occupational status: employed current occupation: [employer] Feels Safe at Home: Yes Safety Concerns: Feels Safe At This Time Childhood Exposure to Second-Hand Smoke: No during the past year weight has: remained stable Dental Care, Regularly: Yes Physical Activity Frequency: Daily Seatbelt Use: always Do you think of yourself as: straight/heterosexual Gender Identity: Female Assistive Devices: None Review of Systems Denies fevers/chills. Denies dyspnea, cough. Denies chest pain. Denies breast pain or discharge. Denies dysuria. Denies headache. Denies back pain. Physical Exam Physical Exam: General: Alert, oriented, no acute distress Cardiac: Regular rate and rhythm, normal S1, S2. No murmurs appreciated. Respiratory: Clear to auscultation b/l with good air flow entry, symmetric chest rise and fall. No wheezes or crackles. No increased work of breathing or access ory muscle use Abdomen: Gravid, soft, nontender. No guarding or CVA tenderness Skin: No rashes or lesions Extremities: Warm, dry, well-perfused with capillary refill <2s b/l. No lower extremity edema, erythema or swelling. Negative Betty's sign b/l. Pelvic Exam per attending: Dilation:3.5 cm Effacement:75% Station:-2 FHR: 150 Baseline: BPM Variability:good Accelerations: present Decelerations: none Results & Data ([facility]) Vital Signs (Past 12 Hours) Vital Signs Temp Resp 09/29/21 08:52 36.8 C 18 Supervising Physician Co-Signing Physician Notes Patient seen and evaluated and agree with the above findings and plan.
[2021-09-29 09:54] LABS: Hematocrit (blood only) 35.1 % (37-47); Hemoglobin 12.5 g/dL (12.0-16.0); Mean Corpuscular Hemoglobin 34.2 pg (25-34); Mean Corpuscular Hgb Conc 35.6 g/dL (32-36); Mean Corpuscular Volume 96.2 fL (80-100); Mean Platelet Volume 9.5 fL (7.4-10.4); Platelet Count 198 K/uL (130-400); RDW Coefficient of Variation 13.5 % (11.5-14.5); RDW Standard Deviation 46.4 fL (36.4-46.3); Red Blood Count 3.65 M/uL (4.2-5.4)
[2021-09-29] MEDS ORDERED: ePHEDrine sulfate 50 MG/ML AMP ONE (10:15)
[2021-09-29] MEDS ORDERED: SODIUM CHLORIDE 0.9% INJ 10 ML VIAL ONE (10:16)
[2021-09-29] MEDS ORDERED: fentaNYL citrate 100 MCG/2 ML VIAL ONE (10:16)
[2021-09-29] MEDS ORDERED: BUPIVACAINE 0.25% 30 ML VIAL ONE (10:16)
[2021-09-29] MEDS ORDERED: fentaNYL 2MCG/ML ROPIVACAINE 1.25MG/ML 100 ML BAG EPI ONE (10:17)
[2021-09-29] MEDS ORDERED: NALBUPHINE HCL INJ 10 MG/ML AMP IV PRN (11:27)
[2021-09-29] MEDS ORDERED: ePHEDrine sulfate 50 MG/ML AMP IV PRN (11:27)
[2021-09-29] MEDS ORDERED: diphenhydrAMINE 50 MG/ML VIAL IV PRN (11:27)
[2021-09-29] MEDS ORDERED: fentaNYL 2MCG/ML ROPIVACAINE 1.25MG/ML 100 ML BAG EPI PRN (11:27)
[2021-09-29] MEDS ORDERED: NALOXONE HCL 1 MG in SODIUM CHLORIDE 0.9% 1000ML 1,000 ML IV PRN (11:27)
[2021-09-29] MEDS ORDERED: NALOXONE HCL 0.4 MG/1 ML VIAL/CARP IV PRN (11:27)
--- NOTE | 2021-09-29 11:27 | Anesthesiology Consultation ---
Date of Service September 29, 2021 Assessment & Plan (1) Encounter for pre-operative examination: Chart Review Chart Review: Acceptable Risk for Surgery and Patient NOT seen in Pre Admission Testing Consults Requested none History Height/Weight Height: 5 ft 4 in Weight: 61.518 kg Allergies Allergy/AdvReac Type Severity Reaction Status Date / Time tramadol Allergy Intermediate ITCHING Verified 09/28/21 14:50 Medications Home Medications Medication Instructions Recorded Confirmed Last Taken cholecalciferol (vitamin D3) 50 50 mcg PO QAM 03/02/21 09/29/21 09/28/21 21:00 mcg (2,000 unit) capsule (Vitamin D3) magnesium oxide 250 mg PO QAM 03/02/21 09/29/21 09/28/21 21:00 prenat.vits,rip,lsy-ojto-oojbs 1 tab PO QAM 03/02/21 09/29/21 09/28/21 21:00 (KPN) riboflavin (vitamin B2) 400 mg 400 mg PO QAM 03/02/21 09/28/21 09/05/21 08:00 tablet ondansetron 4 mg disintegrating 4 mg PO Q6H PRN #12 tab 09/07/21 09/28/21 09/07/21 09:00 tablet promethazine 25 mg tablet 25 mg PO Q6H PRN #10 tab 09/07/21 09/28/21 Unknown Active Medications Generic Name Dose Route Start Last Admin Trade Name Freq PRN Reason Stop Dose Admin Lactated Ringer's 1,000 mls @ 125 mls/hr 09/29/21 09:03 09/29/21 11:14 Lr IV 10/01/21 09:02 999 mls/hr .Q8H PRN Infusion L&D Protocol Protocol Oxytocin 30 units in 500 mls @ 4 mls/hr 09/29/21 09:06 09/29/21 11:12 Pitocin IV 10/01/21 09:05 0.48 units/hr .Q24H PRN 8 mls/hr Labor Induction/Augmentation Titration Protocol 0.24 UNITS/HR Past Medical History Medical History Asthma childhood Contusion of foot Encounter for cosmetic procedure Encounter for cosmetic surgery size inconsistent with dates Flank pain in patient H/O acne vulgaris H/O renal calculi History of chicken pox Hx of migraines Hypokalemia Migraine without aura Paroxysmal SVT (supraventricular tachycardia) Right hip pain SOB (shortness of breath) 08/26 had echo for SOB, chest pain and palpitations- showed vena cava collapse due 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 Past Family History Family History Grandmother (Maternal) Diabetes Hypertension Nrumz-Jmzbziugk-Eqier (WPW) pattern Grandmother (Paternal) Hypertrophic cardiomyopathy Stroke Father Hypertension Dyslipidemia Mitral valve prolapse Diabetes Other No pertinent family history in first degree relatives Denies family history of Ovarian cancer Prostate cancer Breast cancer Colorectal cancer Past Surgical History Surgical History H/O breast augmentation History of surgery on arm Ulnar nerve transposition S/P cystoscopy with ureteral stent placement Social History Smoking Status: Never smoker Hx Alcohol Use: No Hx Substance Use: No substance use type: does not use Physical Exam Vital Signs Last Vital Signs Temp 98.2 F 09/29/21 09:48 Resp 18 09/29/21 09:48 Testing Laboratory Results 09/29/21 09:34
[2021-09-29] MEDS ORDERED: bisacodyL 10 MG SUPP PR PRN (15:37)
[2021-09-29] MEDS ORDERED: HYDROCORTISONE ACETATE 25 MG SUPP PR PRN (15:37)
[2021-09-29] MEDS ORDERED: DIPHTHERIA/TETANUS/PERTUSSIS 0.5 ML SYR/VIAL IM ONE (15:37)
[2021-09-29] MEDS ORDERED: BENZOCAINE 20% AER SPR 82.5 GM CAN EXT PRN (15:37)
--- NOTE | 2021-09-29 17:00 | Anesthesia Procedure Note ---
Date of Service September 29, 2021 Anesthesia Post Epidural Note Vital Signs Vital Signs: Temp Pulse Resp BP Pulse Ox 98.2 F 82 20 118/78 99 09/29/21 13:53 09/29/21 16:35 09/29/21 13:53 09/29/21 16:35 09/29/21 15:21 Notes Mental Status: alert / awake / arousable and participated in evaluation Nausea / Vomiting: adequately controlled Pain: adequately controlled Airway Patency, RR, SpO2: stable & adequate BP & HR: stable & adequate Hydration State: stable & adequate Neuraxial Anesthesia: was administered and sensory block is resolving Anesthetic Complications: no major complications apparent and Pt Satisfied with anesthetic care Epidural: Removed without complications and With tip intact
--- NOTE | 2021-09-29 19:01 | Delivery Summary ---
DATE OF SERVICE: 09/29/2021 PROCEDURE: Normal spontaneous vaginal delivery with right labial laceration repair. SURGEON: Rylan Barlow MD. PREOPERATIVE DIAGNOSES: 1. Single intrauterine at 39 weeks 1 day gestational age. 2. Resolved intrauterine growth restriction. 3. Mild polyhydramnios. POSTOPERATIVE DIAGNOSES: 1. Single intrauterine at 39 weeks 1 day gestational age. 2. Resolved intrauterine growth restriction. 3. Mild polyhydramnios. 4. Status post procedure. ESTIMATED BLOOD LOSS: 200 mL. DRAINS: Straight cath at the completion of the case. URINE OUTPUT: 400 mL via straight cath. COMPLICATIONS: None. FINDINGS: Viable female infant with weight pending, Apgars of 8 and 9 at one and five minutes respec tively. INDICATIONS: The patient is a 31-year-old G2, P1-0-0-1, admitted at 39 weeks 1 day gestational age f or an induction of labor. The patient was noted to be 3-4 cm dilated. At first evaluation, she was s tarted on oxytocin per regular protocol and later received an epidural for anesthesia. She underwent artificial rupture of membranes around 12 p.m. for clear fluid and progressed rapidly in labor to co mplete-complete, +2 station, with urge to push by approximately 3:00. The patient pushed over 2 cont ractions to achieve delivery. DESCRIPTION OF PROCEDURE: The patient progressed to 10 cm dilated, 100% effaced, positive 2 station, pushed over intact perineum with epidural anesthesia, delivered a viable female , weight and A pgars as noted above. Head of the delivered in EVAN position, restituted to right transverse. No nuchal cord was noted. Body and shoulders quickly followed. was noted to be vigorous u zita delivery and a 1 minute delayed cord clamping was initiated. Cord was then double clamped and cu t. Cord blood was then obtained. Attention was turned to delivery of the placenta, which was delive red intact, 3-vessel cord, gentle cord traction. Placenta was normal appearing with normal disk size and appearance. The perineum, vagina, and cervix were then evaluated and there was noted to be a rig ht labial laceration, which was repaired with a single interrupted stitch of 3-0 Vicryl. Needle, spo nge, and instrument counts were correct at the completion of the case. Both mother and were stable in the immediate post-delivery period. Job ID: [id number]
[2021-09-29] MEDS: IBUPROFEN 600 MG TAB PO PRN ×2 (20:29→23:48)
[2021-09-29] MEDS: DOCUSATE SODIUM 100 MG CAP PO SCH (20:29)
[2021-09-30] MEDS: ACETAMINOPHEN 325 MG TAB PO PRN ×4 (02:32→23:16)
[2021-09-30] MEDS: IBUPROFEN 600 MG TAB PO PRN ×5 (04:10→20:07)
--- NOTE | 2021-09-30 07:08 | Obstetrical Progress Note ---
Date of Service September 30, 2021 Assessment & Plan (1) Encounter for care and examination after delivery: Plan: 31 yo PPD1 s/p at 39 weeks -Continue routine care -Vitals reviewed- HDS, afebrile -O+, GBS-, Rubella immune -Encourage ambulation, regular diet -Pain control with ibuprofen, acetaminophen PRN -Encourage -Keep today and discuss D/c tomorrow -F/u in 6 weeks withOB Admission and Anticipated Discharge Date Admission Date: September 29, 2021 Supervising Physician Co-Signing Physician Notes Patient seen and evaluated and agree with the above finding and plan. Routine care. Stable for discharge if preferred Subjective PPD1 s/p . Patient seen and examined at bedside. Reports no acute overnight events. Ambulating and voiding. Passing gas. Regular diet w/o N/V. Lochia small. w/o difficulty. Pain 3-6/10 that improves with heat and analgesia. Pt would like to stay today due to the amount of pain that she is in. Review of Systems Review of Systems: Denies fevers/chills. Denies dyspnea, cough. Denies chest pain. Denies breast pain or discharge. Denies dysuria. Denies headache. Denies back pain. Physical Exam Physical Exam: General: Alert, oriented, no acute distress Cardiac: Regular rate and rhythm, normal S1, S2. No murmurs appreciated. Respiratory: Clear to auscultation b/l with good air flow entry, symmetric chest rise and fall. No wheezes or crackles. No increased work of breathing or accessory muscle use Abdomen: Soft, nontender, nondistended. Fundus firm and palpable at 1 cm below umbilicus. No guarding or rebound. Skin: No rashes or lesions Extremities: Warm, dry, well-perfused with capillary refill <2s b/l. No lower extremity edema, erythema or swelling. Negative Betty's sign b/l. Results & Data ([facility]) Vital Signs (Past 12 Hours) Vital Signs Temp Pulse Resp BP Pulse Ox 09/30/21 04:10 36.4 C L 70 20 119/81 100 09/29/21 23:50 36.5 C 62 20 127/77 99 09/29/21 19:25 36.2 C L 92 H 20 108/72 100
[2021-09-30] MEDS: DOCUSATE SODIUM 100 MG CAP PO SCH ×2 (08:08→20:07)
[2021-09-30] MEDS: PRENATAL VITAMIN 1 TAB PO SCH (08:08)
[2021-09-30] MEDS ORDERED: bisacodyL 5 MG TABEC PO SCH (20:00)
[2021-10-01] MEDS: IBUPROFEN 600 MG TAB PO PRN ×2 (00:58→08:30)
--- NOTE | 2021-10-01 06:40 | Obstetrical Progress Note ---
Date of Service October 01, 2021 Assessment & Plan (1) Encounter for care and examination after delivery: Plan: 31 yo PPD2 s/p at 39 weeks -Continue routine care -Vitals reviewed- HDS, afebrile -O+, GBS-, Rubella immune -Encourage ambulation, regular diet -Pain control with ibuprofen, acetaminophen PRN -Encourage -D/c today -F/u in 6 weeks withOB Admission and Anticipated Discharge Date Admission Date: September 29, 2021 Supervising Physician Co-Signing Physician Notes Resident Physician Supervision Note: I was present with Dr. Jean during the history and exam. I discussed the case with the resident and agree with the findings and plan as documented in the note. Any exceptions or clarifications are listed here: PPD2 s/p , doing well. Feeling much better now compared to yesterday. VSS, exam benign and wnl. Stable for d/c home today Documented By: Missy Guzmán MD Subjective PPD2 s/p . Patient seen and examined at bedside. Reports no acute overnight events. Ambulating and voiding. Passing gas. Regular diet w/o N/V. Lochia small. w/o difficulty. Pain 2-4/10 that improves with heat and analgesia. Pt feels comfortable with leaving today with her pain improvement. Review of Systems Review of Systems: Denies fevers/chills. Denies dyspnea, cough. Denies chest pain. Denies breast pain or discharge. Denies dysuria. Denies headache. Denies back pain. Physical Exam Physical Exam: General: Alert, oriented, no acute distress Cardiac: Regular rate and rhythm, normal S1, S2. No murmurs appreciated. Respiratory: Clear to auscultation b/l with good air flow entry, symmetric chest rise and fall. No wheezes or crackles. No increased work of breathing or accessory muscle use Abdomen: Soft, nontender, nondistended. Fundus firm and palpable at 2 cm below umbilicus. No guarding or rebound. Skin: No rashes or lesions Extremities: Warm, dry, well-perfused with capillary refill <2s b/l. No lower extremity edema, erythema or swelling. Negative Betty's sign b/l. Results & Data ([facility]) Vital Signs (Past 12 Hours) Vital Signs Temp Pulse Resp BP Pulse Ox 09/30/21 23:09 36.6 C 79 16 110/73 97 09/30/21 19:06 36.5 C 77 16 107/71 97
[2021-10-01] MEDS: PRENATAL VITAMIN 1 TAB PO SCH (08:30)
[2021-10-01] MEDS: DOCUSATE SODIUM 100 MG CAP PO SCH (08:30)
== END 2021-10-01 13:10 | disposition home or self-care (01) | DRG 807 ==
LOC: 4S1 08:55 → 4E2 19:41
DX: Z88.5 Allergy status to narcotic agent; Z87.442 Personal history of urinary calculi; O40.3XX0 Polyhydramnios, third trimester, not applicable or unspecified; Z3A.39 39 weeks gestation of pregnancy; O70.0 First degree perineal laceration during delivery; O99.52 Diseases of the respiratory system complicating childbirth; J45.909 Unspecified asthma, uncomplicated; Z37.0 Single live birth

== ENCOUNTER 2021-12-28 15:58 | Inpatient (IN) ==
[2021-12-28] MEDS ORDERED: SODIUM CHLORIDE 0.9% 1000ML 1,000 ML IV ONE (16:08)
[2021-12-28] MEDS ORDERED: KETOROLAC TROMETHAMINE 15 MG/ML VIAL IV STA ×2 (16:15→17:11)
[2021-12-28] MEDS ORDERED: ONDANSETRON INJ 2 MG/ML 2 ML VIAL IV STA ×2 (16:15→17:12)
--- NOTE | 2021-12-28 16:26 | Emergency Department Note ---
History of Present Illness General Chief Complaint: Abdominal Pain Stated Complaint: EXTREME R SIDE ABD PAIN Time Seen by Provider: 12/28/21 16:06 History of Present Illness Provider Complaint: flank pain (R) Onset (ago): 45 minute(s) Pain Consistency: intermittent Location: R flank Migration to: RLQ Severity: moderate Maximum Pain Intensity: 8 Current Pain Intensity: 8 Quality: + stabbing, + aching and + sharp Relieved By: + nothing Exacerbated By: + other (urinating) Context: + recent surgery/procedure (IUD placed 12/08/21) and + history of similar episodes (feels like previous kidney stones); no foreign travel, no possible food poisoning, no sick contacts, no recent antibiotic use or no recent injury Associated Symptoms: + nausea and + dysuria; no vomiting, no diarrhea, no fever, no chills, no constipation, no hematemesis, no hematochezia, no melena, no hematuria, no anorexia, no syncope, no headache, no neck pain, no back pain, no chest pain, no weakness, no breathing difficulty and no numbness Related Data Date of Last Menstrual Period: 12/29/20 Gestational Age Based on EDC: 38 Wks 6 D Home Medications Medication Instructions Recorded Confirmed Type cholecalciferol (vitamin D3) 50 50 mcg PO QAM 03/02/21 12/08/21 History mcg (2,000 unit) capsule (Vitamin D3) magnesium oxide 250 mg PO QAM 03/02/21 12/08/21 History prenat.vits,rip,dcj-ovzn-tmbsf 1 tab PO QAM 03/02/21 12/08/21 History (N) riboflavin (vitamin B2) 400 mg 400 mg PO QAM 03/02/21 12/08/21 History tablet Allergies Allergy/AdvReac Type Severity Reaction Status Date / Time tramadol Allergy Intermediate ITCHING Verified 12/08/21 16:05 Past Med/Surg History Medical History Asthma childhood Contusion of foot Encounter for cosmetic procedure Encounter for cosmetic surgery size inconsistent with dates Flank pain in patient H/O acne vulgaris H/O renal calculi History of chicken pox Hx of migraines Hypokalemia Migraine without aura Paroxysmal SVT (supraventricular tachycardia) Right hip pain SOB (shortness of breath) 08/26 had echo for SOB, chest pain and palpitations- showed vena cava collapse due 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 Surgical History H/O breast augmentation History of surgery on arm Ulnar nerve transposition S/P cystoscopy with ureteral stent placement Family History Grandmother (Maternal) Diabetes Hypertension Oehpe-Jtedrfxvh-Azoqk (WPW) pattern Grandmother (Paternal) Hypertrophic cardiomyopathy Stroke Father Hypertension Dyslipidemia Mitral valve prolapse Diabetes Other No pertinent family history in first degree relatives Denies family history of Ovarian cancer Prostate cancer Breast cancer Colorectal cancer Social History Smoking Status: Never smoker Second Hand Exposure: No; Hx Alcohol Use: No Hx Substance Use: No Preferred Language: French Communication Ability: Effective Visual Impairment: No Limitations Hearing Ability: Normal 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 Beliefs That Will Affect Care: None marital status: marital status details: Guy Mensah (34) [phone] Current Living Situation: Spouse and Family Current Living Situation Comment: and son current occupational status: employed 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[employer] Feels Safe at Home: Yes Childhood Exposure to Second-Hand Smoke: No during the past year weight has: remained stable Dental Care, Regularly: Yes Physical Activity Frequency: Daily Seatbelt Use: always Do you think of yourself as: straight/heterosexual Gender Identity: Female Assistive Devices: None Review of Systems A total of 10 systems reviewed and were otherwise negative Physical Exam Vital Signs: Vital Signs - 24 hr 12/28/21 15:58 12/28/21 16:05 Temperature 36.6 C Temperature Source Temporal Artery Sc an Pulse Rate 69 73 Pulse Rate [Apical ] 62 Respiratory Rate 14 16 Respiratory Effort / Characteristics Non-Labored Respiratory Depth Normal Blood Pressure 105/66 Blood Pressure [Le ft Arm] 123/91 Blood Pressure Nunu n 79 Blood Pressure Nunu n [Left Arm] 101 Pulse Oximetry 98 97 Oxygen Delivery Me thod Room Air Room Air Sepsis Recent Feve r Within 48 Hours No Sepsis New/Unexpla ined Change in Men hedy Status No Sepsis Action Take n by Nursing No Action Required Physical Exam: Physical Exam GENERAL: She is oriented to person, place, and time. She appears well-developed and well-nourished. She does not appear distressed. HENT: Exam performed. -Head: Normocephalic and atraumatic. -Right Ear: External ear normal. No mastoid tenderness. -Left Ear: External ear normal. No mastoid tenderness. -Mouth/Throat: The oropharynx is clear and moist. No trismus in the jaw. No dental abscesses or uvula swelling. No oropharyngeal exudate or tonsillar ab scesses. EYES: Conjunctivae and EOM are normal. Pupils are equal, round, and reactive to light. Right eye exhibits no discharge. Left eye exhibits no discharge. No scleral icterus. NECK: Normal range of motion. Neck supple. No JVD present. No spinous process tenderness present. No carotid bruit present. No rigidity. No tracheal deviation and normal range of motion present. No Brudzinski's sign and no Kernig's sign noted. CV: Normal rate, regular rhythm, normal heart sounds and intact distal pulses. There is no peripheral edema. Palpable radial pulses bue. PULM/CHEST: Effort normal and breath sounds normal. No respiratory distress. No stridor. She has no wheezes. She has no rales. -Chest Wall: She exhibits no tenderness. ABD: The abdomen is soft. Bowel sounds are normal. She has no distension. No mass is present. There is no tenderness. There is no rebound, no guarding, no Phan's sign and no tenderness at McBurney's point. Rovsig negative. Right- sided CVA tenderness. MUSC/SKEL: Normal range of motion. There is no peripheral edema, tenderness or deformity. LYMPH: No cervical adenopathy. NEURO: She is alert and oriented to person, place, and time. She has normal strength. No cranial nerve deficit or sensory deficit. Coordination and gait normal. GCS eye subscore is 4. GCS verbal subscore is 5. GCS motor subscore is 6. Cerebellar tests wnl. SKIN: Skin is warm and dry. She is not diaphoretic. PSYCH: She has a normal mood and affect. Behavior is normal. Judgment and thought content normal. Course Course 1606: The patient was evaluated in room B5. A complete history and physical exam was performed Cardiac monitoring: An order was placed for continuous cardiac monitoring. The monitor shows a rate of 70 with sinus rhythm 1715: Vital signs stable. Labs and urine dip within normal limits. Imaging shows large bilateral kidney stones. Right-sided stone measures 13 mm at the right ureteropelvic junction causing severe right-sided hydronephrosis there is also a 6 mm stone at the left vesicoureteral junction causing mild left-sided hydroureter. IUD is in place. Patient will be admitted to the [facility] team for pain control and evaluation by urology. Administered Medications Discontinued Medications Hydromorphone HCl (Hydromorphone Inj 0.5 Mg/0.5 Ml Syr) 0.5 mg IV NOW STA Stop: 12/28/21 17:13 Last Admin: 12/28/21 17:19 Dose: 0.5 mg Documented by: [id number] Sodium Chloride (Nss 1000ml) 1,000 mls @ 999 mls/hr IV .Q1H1M ONE Stop: 12/28/21 17:08 Last Admin: 12/28/21 16:24 Dose: 999 mls/hr Documented by: [id number] Ketorolac Tromethamine (Ketorolac Tromethamine 15 Mg/Ml Vial) 15 mg IV NOW STA Stop: 12/28/21 16:16 Last Admin: 12/28/21 16:24 Dose: 15 mg Documented by: [id number] Ketorolac Tromethamine (Ketorolac Tromethamine 15 Mg/Ml Vial) 15 mg IV NOW STA Stop: 12/28/21 17:12 Last Admin: 12/28/21 17:18 Dose: 15 mg Documented by: [id number] Ondansetron HCl (Ondansetron Inj 2 Mg/Ml 2 Ml Vial) 4 mg IV NOW STA Stop: 12/28/21 16:16 Last Admin: 12/28/21 16:24 Dose: 4 mg Documented by: [id number] Ondansetron HCl (Ondansetron Inj 2 Mg/Ml 2 Ml Vial) 4 mg IV NOW STA Stop: 12/28/21 17:13 Last Admin: 12/28/21 17:18 Dose: 4 mg Documented by: [id number] Medical Decision Making Laboratory Data Result diagrams: 12/28/21 16:18 12/28/21 16:18 Lab Results 12/28/21 12/28/21 12/28/21 Range/Units 16:18 16:18 16:18 WBC 7.66 (4.8-10.8) K/uL RBC 4.54 (4.2-5.4) M/uL Hgb 15.0 (12.0-16.0) g/dL Hct 42.1 (37-47) % MCV 92.7 (80-100) fL MCH 33.0 (25-34) pg MCHC 35.6 (32-36) g/dL RDW Std Deviation 42.9 (36.4-46.3) fL RDW Coeff of Amanda 12.6 (11.5-14.5) % Plt Count 375 (130-400) K/uL MPV 9.6 (7.4-10.4) fL Immature Gran % (Auto) 0.1 % Neut % (Auto) 50.2 % Lymph % (Auto) 42.8 % [place] % (Auto) 4.7 % Eos % (Auto) 1.8 % Baso % (Auto) 0.4 % Neut # (Auto) 3.84 (1.4-6.5) K/uL Lymph # (Auto) 3.28 (1.2-3.4) K/uL [place] # (Auto) 0.36 (0.11-0.59) K/uL Eos # (Auto) 0.14 (0-0.5) K/uL Baso # (Auto) 0.03 (0-0.2) K/uL Immature Gran # (Auto) 0.01 (0.00-0.02) K/uL Sodium 137 (136-145) mmol/L Potassium 3.6 (3.5-5.1) mmol/L Chloride 102 (98-107) mmol/L Carbon Dioxide 28 (21-32) mmol/L Anion Gap 7 (3-11) BUN 21 (6-23) mg/dl Creatinine 0.96 (0.6-1.2) mg/dl Est Cr Clr Drug Dosing Not Reportable Est GFR ( Amer) 90.1 ml/min Est GFR (Non-Af Amer) 77.7 ml/min BUN/Creatinine Ratio 21.9 H (10-20) Glucose 92 (70-99(Fasting)) mg/dl Calcium 9.4 (8.5-10.1) mg/dl Total Bilirubin 0.6 (0.2-1.0) mg/dl Direct Bilirubin 0.1 (0-0.2) mg/dl AST 15 (13-39) U/L ALT 15 (7-52) U/L Alkaline Phosphatase 47 (34-104) U/L Total Protein 7.0 (6.0-8.3) gm/dl Albumin 4.5 (3.4-5.0) gm/dl Lipase 23 Cancelled (11-82) U/L Imaging Data Radiologist's Impression: Abdomen/Pelvis CT 12/28/21 16:14 CT SCAN OF THE ABDOMEN AND PELVIS WITHOUT IV CONTRAST CLINICAL HISTORY: Right flank pain. COMPARISON STUDY: Abdominal CT dated 03/03/2021. TECHNIQUE: CT scan of the abdomen and pelvis is performed from the lung bases to the proximal femora. Images are reviewed in the axial, sagittal, and coronal p lanes. IV contrast was not administered for this examination. A dose lowering technique was utilized adhering to the principles of ALARA. CT DOSE: 280.40 mGy.cm FINDINGS: Lung bases: The heart is normal in size and without pericardial effusion. A 3 mm left lower lobe pulmonary nodule seen on image #44 is unchanged. This is doubtful significance in this age group. The lung bases are otherwise clear. Bilateral breast implants are partially visualized. Liver: The unenhanced liver is normal in size, contour, and attenuation. There is no intrahepatic biliary ductal dilatation. Gallbladder: Unremarkable. Spleen: Normal in size and attenuation. Pancreas: Unremarkable. Adrenal glands: Unremarkable. Kidneys: The unenhanced kidneys are normal in size. There is a 6 mm obstructing calculus just above the left vesicoureteral junction seen on image #361. This causes mild left-sided hydroureter. No left-sided hydronephrosis is seen. There is a 13 mm obstructing calculus at the right ureteropelvic junction seen on image #191. This causes moderate to severe right-sided hydronephrosis. No additional right renal calculi are identified. There are least 3 additional punctate nonobstructing left renal calculi. There is no evidence of contour deforming renal mass lesion. Abdominal vasculature: The abdominal aorta is normal in course and caliber. Bowel: There is moderate constipation. No bowel obstruction is seen. The appendix is well-visualized and normal. Peritoneum: There is no intraperitoneal free air or abdominal ascites. Lymphadenopathy: None. Pelvic viscera: The bladder, uterus, and adnexa are normal as visualized noting an intrauterine device in place. Trace free fluid is seen in the cul-de-sac. Skeletal structures: No lytic or blastic lesions are seen. IMPRESSION: 1. There is a 13 mm obstructing calculus at the right ureteropelvic junction. This causes moderate to severe right-sided hydronephrosis. 2. There is a 6 mm obstructing calculus just above the left vesicoureteral junction. This only causes mild left-sided hydroureter. 3. Additional nonobstructing left renal calculi as above. 4. Trace nonspecific free fluid in the cul-de-sac is likely physiologic. 5. Additional findings as above. ACT 112: Negative or not required by law. Electronically signed by: Fermin Martinez M.D. 12/28/2021 5:03 PM MDM Narrative Vital signs stable. Labs and urine dip within normal limits. Imaging shows large bilateral kidney stones. Right-sided stone measures 13 mm at the right ureteropelvic junction causing severe right-sided hydronephrosis there is also a 6 mm stone at the left vesicoureteral junction causing mild left-sided hydroureter. IUD is in place. Patient will be admitted to the [facility] team for pain control and evaluation by urology. Impression & Plan Hydronephrosis concurrent with and due to calculi of kidney and ureter Discharge Plan Visit Data Chief Complaint: Abdominal Pain Stated Complaint: EXTREME R SIDE ABD PAIN ED Provider: Justice Frank Discharge Problem: Hydronephrosis concurrent with and due to calculi of kidney and ureter Patient Disposition: Admitted As Inpatient Forms Stand Alone Forms: My [facility] Prescriptions Prescriptions: No Action magnesium oxide 250 mg magnesium Tablet 250 mg PO QAM RF: 0 KPN Tablet 1 tab PO QAM RF: 0 cholecalciferol (vitamin D3) [Vitamin D3] 50 mcg (2,000 unit) Capsule 50 mcg PO QAM RF: 0 riboflavin (vitamin B2) 400 mg Tablet 400 mg PO QAM RF: 0 Referrals Referrals: Moira Dewitt D.O. [Primary Care Provider] -
[2021-12-28 16:30] LABS: Basophils # (auto) 0.03 K/uL (0-0.2); Basophils % (auto) 0.4 %; Eosinophils # (auto) 0.14 K/uL (0-0.5); Eosinophils % (auto) 1.8 %; Hematocrit (blood only) 42.1 % (37-47); Immature Granulocytes # (auto) 0.01 K/uL (0.00-0.02); Immature Granulocytes % (auto) 0.1 %; Lymphocytes # (auto) 3.28 K/uL (1.2-3.4); Lymphocytes % (auto) 42.8 %; Mean Corpuscular Hgb Conc 35.6 g/dL (32-36); Mean Corpuscular Volume 92.7 fL (80-100); Mean Platelet Volume 9.6 fL (7.4-10.4); Monocytes # (auto) 0.36 K/uL (0.11-0.59); Monocytes % (auto) 4.7 %; Neutrophils # (auto) 3.84 K/uL (1.4-6.5); Neutrophils % (auto) 50.2 %; Platelet Count 375 K/uL (130-400); RDW Coefficient of Variation 12.6 % (11.5-14.5); RDW Standard Deviation 42.9 fL (36.4-46.3); Red Blood Count 4.54 M/uL (4.2-5.4); White Blood Count 7.66 K/uL (4.8-10.8)
[2021-12-28 16:48] LABS: Alanine Aminotransferase 15 U/L (7-52); Albumin Level 4.5 gm/dl (3.4-5.0); Alkaline Phosphatase 47 U/L (34-104); Anion Gap 7 (3-11); Aspartate Aminotransferase 15 U/L (13-39); BUN Creatinine Ratio 21.9 (10-20); Bilirubin Direct 0.1 mg/dl (0-0.2); Bilirubin,Total 0.6 mg/dl (0.2-1.0); Blood Urea Nitrogen 21 mg/dl (6-23); Calcium 9.4 mg/dl (8.5-10.1); Carbon Dioxide 28 mmol/L (21-32); Chloride 102 mmol/L (98-107); Est GFR (African American) 90.1 ml/min; Est GFR (Non-African American) 77.7 ml/min; Glucose 92 mg/dl (70-99(Fasting)); Lipase 23 U/L (11-82); Potassium 3.6 mmol/L (3.5-5.1); Sodium 137 mmol/L (136-145)
--- NOTE | 2021-12-28 17:05 | CT Scan Report ---
CT SCAN OF THE ABDOMEN AND PELVIS WITHOUT IV CONTRAST CLINICAL HISTORY: Right flank pain. COMPARISON STUDY: Abdominal CT dated 03/03/2021. TECHNIQUE: CT scan of the abdomen and pelvis is performed from the lung bases to the proximal femora. Images are reviewed in the axial, sagittal, and coronal planes. IV contrast was not administered for this examination. A dose lowering technique was utilized adhering to the principles of ALARA. CT DOSE: 280.40 mGy.cm FINDINGS: Lung bases: The heart is normal in size and without pericardial effusion. A 3 mm left lower lobe pulm onary nodule seen on image #44 is unchanged. This is doubtful significance in this age group. The yolanda g bases are otherwise clear. Bilateral breast implants are partially visualized. Liver: The unenhanced liver is normal in size, contour, and attenuation. There is no intrahepatic pao iary ductal dilatation. Gallbladder: Unremarkable. Spleen: Normal in size and attenuation. Pancreas: Unremarkable. Adrenal glands: Unremarkable. Kidneys: The unenhanced kidneys are normal in size. There is a 6 mm obstructing calculus just above t he left vesicoureteral junction seen on image #361. This causes mild left-sided hydroureter. No left- sided hydronephrosis is seen. There is a 13 mm obstructing calculus at the right ureteropelvic juncti on seen on image #191. This causes moderate to severe right-sided hydronephrosis. No additional right renal calculi are identified. There are least 3 additional punctate nonobstructing left renal calcul i. There is no evidence of contour deforming renal mass lesion. Abdominal vasculature: The abdominal aorta is normal in course and caliber. Bowel: There is moderate constipation. No bowel obstruction is seen. The appendix is well-visualized and normal. Peritoneum: There is no intraperitoneal free air or abdominal ascites. Lymphadenopathy: None. Pelvic viscera: The bladder, uterus, and adnexa are normal as visualized noting an intrauterine devic e in place. Trace free fluid is seen in the cul-de-sac. Skeletal structures: No lytic or blastic lesions are seen. IMPRESSION: 1. There is a 13 mm obstructing calculus at the right ureteropelvic junction. This causes moderate to severe right-sided hydronephrosis. 2. There is a 6 mm obstructing calculus just above the left vesicoureteral junction. This only causes mild left-sided hydroureter. 3. Additional nonobstructing left renal calculi as above. 4. Trace nonspecific free fluid in the cul-de-sac is likely physiologic. 5. Additional findings as above. ACT 112: Negative or not required by law. Electronically signed by: Fermin Martinez M.D. 12/28/2021 5:03 PM
[2021-12-28] MEDS ORDERED: HYDROmorphone INJ 0.5 MG/0.5 ML SYR IV STA ×2 (17:12→19:56)
[2021-12-28 18:23] LABS: Appearance Urine Clear (Clear); Bacteria Urine Automated Negative (Negative); Bilirubin Urine Negative (Negative); Blood Urine 3+ (Negative); Cast Urine Automated 0 /lpf (0-5); Color Urine Yellow; Epithelial Cell Urine Auto 20-30 /lpf (0-5); Glucose Urine UA Negative (Negative); Ketones Urine Negative (Negative); Leukocyte Esterase Urine 1+ (Negative); Nitrite Urine Negative (Negative); Protein Urine Trace (Negative); Specific Gravity Urine 1.009 (1.000-1.030); Urobilinogen Urine Negative (Negative)
--- NOTE | 2021-12-28 18:50 | History & Physical Report ---
Date of Service December 28, 2021 Assessment & Plan (1) Hydronephrosis concurrent with and due to calculi of kidney and ureter: Plan: Kidney stone bilateral Right greater than left - right sided hydro with 13mm obstructing stone UPJ - left 6mm obstructing stone UVJ - LR 115 - Flomax 0.4mg now and then in am - NPO after midnight - Pain control tiered- Tyelnol PO/ IV after MN, Toradol 15mg prn, Hydromorphone 0.5mg IV PRN - UA negative for infection - Urology consulted- appreciate assistance (2) Acute pain: Plan: secondary to kidney stone as above History of Present Illness Primary Care Provider: Moira Dewitt 31 YOF with medical history of: Kidney stone with (underwent cysto/stenting), recent IUD placement 12/22). Patient comes to the EMD today for complaints of sharp stabbing pain in her right flank that was acute onset. This resulted in severe pain, nausea without vomiting, chills, and pain that radiated from her flank into her groin. There was no associated diarrhea. This occurred around 1500 when she went to urinate. There was no more blood in her urine than prior. As above she has had a IUD recently placed and has been spotting with this. In the EMD the patient had routine labs performed and UA. She is without WBC or fever. UA with RBC LE 1+ no bacteria and WBC 1-5. She also had CT scan of abdomen and Pelvis completed. This was interpreted as bilateral kidney stones with right > lt. Right is 13mm obstructing at UPJ and moderate/severe hydronephrosis, Left side is with 6mm obstructing stone above the vesicoureteral junction with mild left sided hydro. Patient will be admitted for pain control, nausea control, IVF and consultation with Urology. She will be kept NPO after midnight. Patient has had anesthesia before and reports postop nausea. She has no other co-morbidities. COVID test on admission is: NEGATIVE Allergies Allergy/AdvReac Type Severity Reaction Status Date / Time tramadol Allergy Intermediate ITCHING Verified 12/08/21 16:05 Home Medications Medication Instructions Recorded Confirmed Type cholecalciferol (vitamin D3) 50 50 mcg PO QAM 03/02/21 12/08/21 History mcg (2,000 unit) capsule (Vitamin D3) magnesium oxide 250 mg PO QAM 03/02/21 12/08/21 History prenat.vits,rip,fzb-wbqy-rvsxv 1 tab PO QAM 03/02/21 12/08/21 History ([facility]) riboflavin (vitamin B2) 400 mg 400 mg PO QAM 03/02/21 12/08/21 History tablet docusate sodium 100 mg capsule 100 mg PO BID #20 cap 12/29/21 Rx oxycodone-acetaminophen 5 mg-325 1 tab PO Q6H PRN #10 tab 12/29/21 Rx mg tablet (Percocet) tamsulosin 0.4 mg capsule 0.4 mg PO QAM #30 cap 12/29/21 Rx Past Med/Surg History Medical History Asthma childhood Contusion of foot Encounter for cosmetic procedure Encounter for cosmetic surgery size inconsistent with dates Flank pain in patient H/O acne vulgaris H/O renal calculi History of chicken pox Hx of migraines Hypokalemia Migraine without aura Paroxysmal SVT (supraventricular tachycardia) Right hip pain SOB (shortness of breath) 08/26 had echo for SOB, chest pain and palpitations- showed vena cava collapse due 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 Surgical History H/O breast augmentation History of surgery on arm Ulnar nerve transposition S/P cystoscopy with ureteral stent placement Family History Grandmother (Maternal) Diabetes Hypertension Finbv-Zdzxmfrgg-Xlvvf (WPW) pattern Grandmother (Paternal) Hypertrophic cardiomyopathy Stroke Father Hypertension Dyslipidemia Mitral valve prolapse Diabetes Other No pertinent family history in first degree relatives Denies family history of Ovarian cancer Prostate cancer Breast cancer Colorectal cancer Social History Smoking Status: Never smoker Second Hand Exposure: No; Hx Alcohol Use: Yes Alcohol type: beer and wine Hx Substance Use: No Preferred Language: Bulgarian Communication Ability: Effective Visual Impairment: No Limitations Hearing Ability: Normal Still Operator Whiskey Required: No Beliefs That Will Affect Care: None marital status: marital status details: Guy Mensah (34) [phone] Current Living Situation: Family Current Living Situation Comment: and son current occupational status: employed 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 Eyes: No diplopia, no worsening or blurred vision ENT: normal hearing, no trouble swallowing Respiratory: No cough, sputum, dyspnea at rest or on exertion Cardiovascular: No chest pain, tightness or palpitations Abdomen: (+) right flank pain, nausea, NO vomiting, diarrhea or constipation Musculoskeletal: No joint pain, calf pain, swelling Neurologic: No weakness, numbness/tingling, or balance problems Psychiatric: No anxiety or depression Skin: No rash or itch Physical Exam Physical Exam: PHYSICAL EXAM: General: awake, alert, no apparent distress Head: Normocephalic, atraumatic ENT: PERRL, EOMI, no pharyngeal exudate, mucous membranes moist Neuro: AAO x 3, speech clear and appropriate, strength intact bilaterally 5/5, sensation intact and equal all extremities and dermatomes, no pronator drift Chest: equal rise and fall of the chest, no accessory muscle use, no heaves or thrills, Clear to auscultation, on room air, Cardiac: Regular rate and rhythm, telemetry reviewed- NSR no ectopy, skin warm dry, cap refill <3 seconds, peripheral pulses +2 no JVD, no murmur, no edema GI: NABS x 4 quadrants, soft, nontender to palpation, no rebound, guarding or tenderness : Right flank CVA tenderness, left side without tenderness, pain with deep palpation to right abdomen, Spontaneously voiding Extremities: Normal inspection, no peripheral edema or erythema, calfs nontender to palpation Psych: Normal mood and affect Skin: no rash or erythema Results & Data Results & Data ([facility]) Vital Signs (Past 12 Hours) Vital Signs Temp Pulse Pulse Resp BP BP Pulse Ox 12/28/21 16:05 36.6 C 73 16 105/66 97 12/28/21 15:58 69 62 14 123/91 98 Laboratory Results Abnormal lab results 12/28/21 12/28/21 Range/Units 16:18 17:12 BUN/Creatinine Ratio 21.9 H (10-20) Urine Protein Trace H (Negative) Urine Blood 3+ H (Negative) Ur Leukocyte Esterase 1+ H (Negative) Urine RBC (Auto) 5-10 H (0-4) /hpf U Epithel Cells (Auto) 20-30 H (0-5) /lpf Diagnostic Findings Abdomen/Pelvis CT 12/28/21 16:14 CT SCAN OF THE ABDOMEN AND PELVIS WITHOUT IV CONTRAST CLINICAL HISTORY: Right flank pain. COMPARISON STUDY: Abdominal CT dated 03/03/2021. TECHNIQUE: CT scan of the abdomen and pelvis is performed from the lung bases to the proximal femora. Images are reviewed in the axial, sagittal, and coronal planes. IV contrast was not administered for this examination. A dose lowering technique was utilized adhering to the principles of ALARA. CT DOSE: 280.40 mGy.cm FINDINGS: Lung bases: The heart is normal in size and without pericardial effusion. A 3 mm left lower lobe pulmonary nodule seen on image #44 is unchanged. This is doubtful significance in this age group. The lung bases are otherwise clear. Bilateral breast implants are partially visualized. Liver: The unenhanced liver is normal in size, contour, and attenuation. There is no intrahepatic biliary ductal dilatation. Gallbladder: Unremarkable. Spleen: Normal in size and attenuation. Pancreas: Unremarkable. Adrenal glands: Unremarkable. Kidneys: The unenhanced kidneys are normal in size. There is a 6 mm obstructing calculus just above the left vesicoureteral junction seen on image #361. This causes mild left-sided hydroureter. No left-sided hydronephrosis is seen. There is a 13 mm obstructing calculus at the right ureteropelvic junction seen on image #191. This causes moderate to severe right-sided hydronephrosis. No additional right renal calculi are identified. There are least 3 additional punctate nonobstructing left renal calculi. There is no evidence of contour deforming renal mass lesion. Abdominal vasculature: The abdominal aorta is normal in course and caliber. Bowel: There is moderate constipation. No bowel obstruction is seen. The appe ndix is well-visualized and normal. Peritoneum: There is no intraperitoneal free air or abdominal ascites. Lymphadenopathy: None. Pelvic viscera: The bladder, uterus, and adnexa are normal as visualized noting an intrauterine device in place. Trace free fluid is seen in the cul-de-sac. Skeletal structures: No lytic or blastic lesions are seen. IMPRESSION: 1. There is a 13 mm obstructing calculus at the right ureteropelvic junction. This causes moderate to severe right-sided hydronephrosis. 2. There is a 6 mm obstructing calculus just above the left vesicoureteral junction. This only causes mild left-sided hydroureter. 3. Additional nonobstructing left renal calculi as above. 4. Trace nonspecific free fluid in the cul-de-sac is likely physiologic. 5. Additional findings as above. ACT 112: Negative or not required by law. Electronically signed by: Fermin Martinez M.D. 12/28/2021 5:03 PM Medications Administered Discontinued Medications Hydromorphone HCl (Hydromorphone Inj 0.5 Mg/0.5 Ml Syr) 0.5 mg IV NOW STA Stop: 12/28/21 17:13 Last Admin: 12/28/21 17:19 Dose: 0.5 mg Documented by: [id number] Sodium Chloride (Nss 1000ml) 1,000 mls @ 999 mls/hr IV .Q1H1M ONE Stop: 12/28/21 17:08 Last Admin: 12/28/21 16:24 Dose: 999 mls/hr Documented by: [id number] Ketorolac Tromethamine (Ketorolac Tromethamine 15 Mg/Ml Vial) 15 mg IV NOW STA Stop: 12/28/21 16:16 Last Admin: 12/28/21 16:24 Dose: 15 mg Documented by: [id number] Ketorolac Tromethamine (Ketorolac Tromethamine 15 Mg/Ml Vial) 15 mg IV NOW STA Stop: 12/28/21 17:12 Last Admin: 12/28/21 17:18 Dose: 15 mg Documented by: [id number] Ondansetron HCl (Ondansetron Inj 2 Mg/Ml 2 Ml Vial) 4 mg IV NOW STA Stop: 12/28/21 16:16 Last Admin: 12/28/21 16:24 Dose: 4 mg Documented by: [id number] Ondansetron HCl (Ondansetron Inj 2 Mg/Ml 2 Ml Vial) 4 mg IV NOW STA Stop: 12/28/21 17:13 Last Admin: 12/28/21 17:18 Dose: 4 mg Documented by: [id number] Home Medications cholecalciferol (vitamin D3) 50 mcg (2,000 unit) capsule (Vitamin D3) 50 mcg PO QAM 03/02/21 [History Confirmed 12/08/21] magnesium oxide 250 mg PO QAM 03/02/21 [History Confirmed 12/08/21] prenat.vits,rip,jwg-kalr-satrw (KPN) 1 tab PO QAM 03/02/21 [History Confirmed 12/08/21] riboflavin (vitamin B2) 400 mg tablet 400 mg PO QAM 03/02/21 [History Confirmed 12/08/21] ECG Additional Comments: obtain on admission Code Status & VTE Plan Code Status CODE: FULL VTE: SCDS, ambulation VTE Prophylaxis Plan VTE Prophylaxis will be ordered: Yes Supervising Physician Co-Signing Physician Notes I personally saw and examined the patient. I verified all cedeno points and agree with GENARO Cm with the following exceptions and/or additions: 31 year old female presents with bilateral right > left flank pain. Obstructing stones bilaterally. Pain now better after dilaudid, currently 4/10 when seen. Urine does not appear to be infected. 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 O/E Abdo SNT, bilateral CVA tenderness. no acute distress A/P Bilateral obstructing ureterolithiasis - IV fluids, NPO after midnight. tamsulosin. Consult urology for surgical management tomorrow - discussed case with Dr Atkins over the phone. PG Care Time/CCT Total # of Minutes Spent Total Time Spent with Patient: Total time spent is greater than 50% in coordination of care (as documented) at patient's floor/unit and/or counseling patient: Coding Level of Care Code 28003 Initial Inpt Care Lvl 1 Diagnoses Hydronephrosis concurrent with and due to calculi of kidney and ureter N13.2 Acute pain R52
[2021-12-28] MEDS: LACTATED RINGER'S 1,000 ML IV SCH (20:42)
[2021-12-28] MEDS ORDERED: ACETAMINOPHEN 325 MG TAB PO PRN (20:42)
[2021-12-28] MEDS ORDERED: ONDANSETRON INJ 2 MG/ML 2 ML VIAL IV PRN (20:42)
[2021-12-28] MEDS ORDERED: PROMETHAZINE HCL 12.5 MG in SODIUM CHLORIDE 0.9% 50 ML IV PRN (20:42)
[2021-12-28] MEDS ORDERED: TAMSULOSIN HCL 0.4 MG CAP PO ONE (20:42)
--- NOTE | 2021-12-28 21:14 | Urology Consultation ---
Date of Consultation December 28, 2021 Assessment & Plan (1) Nephrolithiasis: The patient has been admitted on the hospitalist service. Recommend proceeding as follows: Provide analgesics Provide antiemetics Provide IV fluid for hydration Continue Flomax for expulsive therapy Strain urine and save any kidney stones for analysis Implement n.p.o. status at midnight tonight. Patient was reassessed in the morning determine if cystoscopy will be required. At the present time the pat ient has normal white blood cell count, has normal renal function, is afebrile, and has not noted to be hypotensive or tachycardic. Therefore not feel an emergent urologic procedure is required at this time. Additional recommendations be forthcoming based on her reassessment and her clinical course as it unfolds History of Present Illness Reason for Consultation: Nephrolithiasis Attending Physician: Mihai Hanks MD History of Present Illness This is a 31-year-old female who presented to [facility] emergency department secondary to right flank pain radiating to her abdomen. Patient notes that this began at approximately 3:00 PM today. She denied any fevers but did report occasional chills. She also reported nausea without vomiting. Again she notes that she had pain in her right flank that radiated to the right side of her abdomen. She denied any dysuria or hematuria. Patient does report a prior history of kidney stones. She did have a kidney stone in March 2021. Because of this problem that she did require cystoscopy but this was performed at [facility] as the patient was at the time. She has not had any further kidney stone issues since that time up until today. Today in the emergency department the patient was noted to be hemodynamically stable and afebrile. She did have labs and imaging which I independently reviewed. A CT scan of the abdomen pelvis showed the patient had a 13 mm obstructing calculus at the right ureteropelvic junction causing moderate to severe hydronephrosis. She also had a 6 mm obstructing calculus at the left u reterovesical junction causing some hydroureter. Labs include a CBC her white blood cell count, hemoglobin, hematocrit, and platelet count were normal. Chemistry profile showed sodium, potassium, BUN, and creatinine were normal. Urinalysis showed 1+ leukocyte Estrace but was negative for nitrites. There were only 1-5 white blood cells per high-power field and no bacteria. A test was negative. A COVID test was negative. At the time of my interview the patient was resting comfortably in bed and she was in no distress. Allergies Allergy/AdvReac Type Severity Reaction Status Date / Time tramadol Allergy Intermediate ITCHING Verified 12/08/21 16:05 Home Medications Medication Instructions Recorded Confirmed Type cholecalciferol (vitamin D3) 50 50 mcg PO QAM 03/02/21 12/08/21 History mcg (2,000 unit) capsule (Vitamin D3) magnesium oxide 250 mg PO QAM 03/02/21 12/08/21 History prenat.vits,rip,qob-dfcn-zawho 1 tab PO QAM 03/02/21 12/08/21 History ([facility]) riboflavin (vitamin B2) 400 mg 400 mg PO QAM 03/02/21 12/08/21 History tablet Patient History Medical History Asthma childhood Contusion of foot Encounter for cosmetic procedure Encounter for cosmetic surgery size inconsistent with dates Flank pain in patient H/O acne vulgaris H/O renal calculi History of chicken pox Hx of migraines Hypokalemia Migraine without aura Paroxysmal SVT (supraventricular tachycardia) Right hip pain SOB (shortness of breath) 08/26 had echo for SOB, chest pain and palpitations- showed vena cava collapse due 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 Surgical History H/O breast augmentation History of surgery on arm Ulnar nerve transposition S/P cystoscopy with ureteral stent placement Family History Grandmother (Maternal) Diabetes Hypertension Zrfzy-Gbfyhdbbl-Vsfol (WPW) pattern Grandmother (Paternal) Hypertrophic cardiomyopathy Stroke Father Hypertension Dyslipidemia Mitral valve prolapse Diabetes Other No pertinent family history in first degree relatives Denies family history of Ovarian cancer Prostate cancer Breast cancer Colorectal cancer Social History Smoking Status: Never smoker Second Hand Exposure: No; Hx Alcohol Use: No Hx Substance Use: No Preferred Language: Korean Communication Ability: Effective Visual Impairment: No Limitations Hearing Ability: Normal Mill Oiler Required: No Beliefs That Will Affect Care: None marital status: marital status details: Guy Mensah (34) [phone] Current Living Situation: Spouse and Family Current Living Situation Comment: and son current occupational status: employed 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 Feels Safe at Home: Yes Childhood Exposure to Second-Hand Smoke: No during the past year weight has: remained stable Dental Care, Regularly: Yes Physical Activity Frequency: Daily Seatbelt Use: always Do you think of yourself as: straight/heterosexual Gender Identity: Female Assistive Devices: None Review of Systems Constitutional: + chills; no fever Eyes: no eye pain Ear, Nose, Mouth, Throat: no ear pain Respiratory: no cough and no dyspnea Cardiovascular: no chest pain Gastrointestinal: + abdominal pain (Radiating from right flank) and + nausea; no vomiting Genitourinary: as per Subjective / HPI Musculoskeletal: + back pain (Right flank) Integumentary: no rash Neurologic: no localized weakness Physical Exam Constitutional: WD/WN, vitals as above Eyes: no conjunctival abnormality ENMT: Ears: no hearing impairment and no external ear abnormality Mouth: no oropharynx abnormality Neck: trachea midline Respiratory: normal respiratory effort; no respiratory distress and no labored breathing Cardiovascular: Rate/Rhythm: regular rate and regular rhythm Gastrointestinal (Abdomen): Soft and nonrigid, nontender to palpation Skin: no rashes Neurologic: moves all extremities Psychiatric: A+Ox3, euthymic affect Genitourinary: + CVA tenderness (Minimal CVA tenderness with percussion on the right, absent on left) Results & Data ([facility]) Vital Signs (Past 12 Hours) Vital Signs Temp Pulse Pulse Resp BP BP Pulse Ox 12/28/21 19:53 77 21 112/79 98 12/28/21 16:05 36.6 C 73 16 105/66 97 12/28/21 15:58 69 62 14 123/91 98 PG Care Time/CCT Total # of Minutes Spent Total Time Spent with Patient: Total time spent is greater than 50% in coordination of care (as documented) at patient's floor/unit and/or counseling patient: Coding Level of Care Code 18794 Inpt Consult Level 5 Diagnoses Nephrolithiasis N20.0
[2021-12-29] MEDS: LACTATED RINGER'S 1,000 ML IV SCH ×3 (06:35→21:48)
[2021-12-29] MEDS: ACETAMINOPHEN 1,000 MG/100 ML VIAL IV PRN ×2 (06:35→16:45)
[2021-12-29 07:33] LABS: Basophils # (auto) 0.03 K/uL (0-0.2); Basophils % (auto) 0.6 %; Eosinophils # (auto) 0.14 K/uL (0-0.5); Eosinophils % (auto) 2.8 %; Hematocrit (blood only) 36.7 % (37-47); Hemoglobin 12.6 g/dL (12.0-16.0); Lymphocytes # (auto) 1.87 K/uL (1.2-3.4); Lymphocytes % (auto) 37.6 %; Mean Corpuscular Hemoglobin 32.1 pg (25-34); Mean Corpuscular Hgb Conc 34.3 g/dL (32-36); Mean Corpuscular Volume 93.6 fL (80-100); Mean Platelet Volume 9.3 fL (7.4-10.4); Monocytes # (auto) 0.35 K/uL (0.11-0.59); Neutrophils # (auto) 2.59 K/uL (1.4-6.5); Platelet Count 278 K/uL (130-400); RDW Coefficient of Variation 12.7 % (11.5-14.5); RDW Standard Deviation 43.3 fL (36.4-46.3); Red Blood Count 3.92 M/uL (4.2-5.4); White Blood Count 4.98 K/uL (4.8-10.8)
[2021-12-29 07:57] LABS: BUN Creatinine Ratio 16.3 (10-20); Calcium 8.3 mg/dl (8.5-10.1); Creatinine Clr Calc Pharmacy 66.3 ml/min; Est GFR (African American) 81.8 ml/min; Est GFR (Non-African American) 70.5 ml/min; Magnesium 1.9 mg/dl (1.7-2.4); Potassium 4.5 mmol/L (3.5-5.1)
--- NOTE | 2021-12-29 08:56 | Electrocardiogram Report ---
Test Reason : Blood Pressure : / mmHG Vent. Rate : 061 BPM Atrial Rate : 061 BPM P-R Int : 116 ms QRS Dur : 092 ms QT Int : 442 ms P-R-T Axes : 032 035 048 degrees QTc Int : 444 ms Normal sinus rhythm Normal ECG When compared with ECG of 03-AUG-2021 10:35, Vent. rate has decreased BY 43 BPM Confirmed by Oz Rowley ([id number]) on 12/29/2021 8:55:46 AM Referred By: REFERRED SELF Confirmed By:Oz Rowley
--- NOTE | 2021-12-29 09:13 | XRay Report ---
XR KUB/Abdomen 1 view CLINICAL HISTORY: evaluate kidney stones TECHNIQUE: 1 view of the abdomen was obtained. Comparison: Comparison is made to CT abdomen pelvis 12/28/2021 FINDINGS: A 11 mm stone in the right proximal ureter is approximately unchanged in appearance from prior exam. The osseous structures are grossly unremarkable. The bowel gas pattern is nonobstructive. A moderate amount of stool is noted within the large bowel. IMPRESSION: Stable appearance of proximal right ureteric stone. ACT 112: Negative or not required by law. Electronically signed by: Chaz Ortiz M.D. 12/29/2021 9:11 AM
--- NOTE | 2021-12-29 09:13 | Urology Progress Note ---
Date of Service December 29, 2021 Assessment & Plan (1) Hydronephrosis concurrent with and due to calculi of kidney and ureter: (2) Renal colic: Plan: 31yo F admitted with intractable right flank pain and nausea secondary to a 13 mm obstructing calculus at the right ureteropelvic junction causing moderate to severe hydronephrosis as well as a 6 mm obstructing calculus at the left ureterovesical junction causing some hydroureter. - Plan of care reviewed with Dr. Farmer, on-call urologist. - Pt afebrile, labs reviewed - No leukocytosis, renal function normal. - Urinalysis not indicative of infection. - Discussed options for acute stone management with bilateral stent placement. Discussed possible ureteroscopy with extraction and/or laser lithotripsy depending on findings.Stone free rates were also discussed as well as possibility of multiple procedures. Ureteral stents were discussed as well as post-operative issues and pain management. Risks and benefits were discussed. All questions were answered. - Pt agreeable to proceeding. - Will plan to proceed to OR today for cystoscopy, bilateral retrograde pyelogram, bilateral ureteral stent placement, possible ureteroscopy, laser lithotripsy/stone treatment depending on findings. - Risks and benefits to be reviewed with patient by Dr. Farmer. OR notified. Covid test negative. Will cover with IV Ancef preoperatively. - Keep NPO. - Continue supportive care and pain management. - Will continue to follow. Admission and Anticipated Discharge Date Admission Date: December 28, 2021 Supervising Physician Co-Signing Physician Notes I have discussed Ms. Mensah's case with GENARO Espinal and agree with the above documentation. She has bilateral obstructing stones, although she is still passing some urine down to the bladder. We discussed the plan for, at minimum, bilateral stent placement to allow the urine to drain from the kidneys. We discussed the possibility of performing ureteroscopy and laser lithotripsy to remove the stones or least try to fragment them and let her pass the fragments. Due to the large stone burden, there is a high likelihood that she will require a second procedure. We discussed the risks of bleeding, infection, injury to the ureters or urinary tract, inability to place the stent, need for additional procedures, stent discomfort. She expressed understanding and agreed to proceed with surgery. Subjective Patient examined at bedside this AM with Dr. Farmer. Awake, resting in bed on arrival. No acute distress. States pain has improved since admission, currently rates pain 3/10. No fevers. Voiding without issue. Review of Systems Constitutional: as per Subjective / HPI Genitourinary: as per Subjective / HPI Physical Exam Constitutional: no acute distress Respiratory: normal respiratory effort; no respiratory distress and no labored breathing Skin: No visible rashes or lesions to exposed skin areas Neurologic: awake Psychiatric: A+Ox3, euthymic affect Results & Data ([facility]) Vital Signs (Past 12 Hours) Vital Signs Temp Pulse Resp BP BP Pulse Ox 12/29/21 07:28 36.4 C L 53 L 16 84/57 L 100 12/28/21 22:50 36.9 C 51 L 14 91/55 L 99 PG Care Time/CCT Total # of Minutes Spent Total Time Spent with Patient: Total time spent is greater than 50% in coordination of care (as documented) at patient's floor/unit and/or counseling patient: Coding Level of Care Code 15005 Subseq Hosp Care Lvl 2 Diagnoses Hydronephrosis concurrent with and due to calculi of kidney and ureter N13.2 Renal colic N23
[2021-12-29] MEDS: TAMSULOSIN HCL 0.4 MG CAP PO SCH (09:52)
[2021-12-29] MEDS: KETOROLAC TROMETHAMINE 15 MG/ML VIAL IV PRN (11:06)
[2021-12-29] MEDS ORDERED: ceFAZolin 2000MG 2,000 MG/15 ML SYR IV ONE (11:12)
[2021-12-29] MEDS ORDERED: MIDAZOLAM HCL 1 MG/ML 2ML VIAL ONE (14:20)
[2021-12-29] MEDS ORDERED: fentaNYL citrate 100 MCG/2 ML VIAL ONE (14:20)
[2021-12-29] MEDS ORDERED: ceFAZolin 2,000 MG/15 ML IV PUSH IV ONE (14:25)
[2021-12-29] MEDS ORDERED: LIDOCAINE 2% 2 ML VIAL/AMP(20MG/ML) INFIL ONE (14:29)
[2021-12-29] MEDS ORDERED: PROPOFOL IV EMULSION 10 MG/ML 20 ML VIAL IV ONE (14:29)
[2021-12-29] MEDS ORDERED: ONDANSETRON INJ 2 MG/ML 2 ML VIAL ONE ×2 (14:29→15:36)
[2021-12-29] MEDS ORDERED: ATROPINE SULFATE 0.1 MG/ML 10ML SYR IV PRN (15:27)
[2021-12-29] MEDS ORDERED: fentaNYL citrate 100 MCG/2 ML VIAL IV PRN (15:27)
[2021-12-29] MEDS ORDERED: ONDANSETRON INJ 2 MG/ML 2 ML VIAL IV PRN ×2 (15:27→16:54)
[2021-12-29] MEDS ORDERED: ePHEDrine sulfate 50 MG/ML AMP IV PRN (15:27)
--- NOTE | 2021-12-29 15:27 | Anesthesiology Consultation ---
Date of Service December 29, 2021 Assessment & Plan Chart Review Chart Review: Acceptable Risk for Surgery and Patient NOT seen in Pre Admission Testing Consults Requested none ASA ASA2 Proposed Anesthesia Anesthesia Type: General Risk / Benefits Reviewed With: PT / POA / Parent / Guardian, Accepts Plan and Informed Consent Obtained History Surgery Operation Date: 12/29/21 10:20 Proposed Procedures p Cystoscopy Bilateral Retrograde Pyelograms Bilateral Stent Placement Possible Ureteroscopy Possible Laser Lithotripsy with Stone Treatment - Juliano Farmer MD Height/Weight Height: 5 ft 6 in Weight: 54.6 kg Allergies Allergy/AdvReac Type Severity Reaction Status Date / Time tramadol Allergy Intermediate ITCHING Verified 12/08/21 16:05 Medications Home Medications Medication Instructions Recorded Confirmed Last Taken cholecalciferol (vitamin D3) 50 50 mcg PO QAM 03/02/21 12/08/21 09/28/21 21:00 mcg (2,000 unit) capsule (Vitamin D3) magnesium oxide 250 mg PO QAM 03/02/21 12/08/21 09/28/21 21:00 prenat.vits,rip,wxv-ongn-yxqkw 1 tab PO QAM 03/02/21 12/08/21 09/28/21 21:00 (KPN) riboflavin (vitamin B2) 400 mg 400 mg PO QAM 03/02/21 12/08/21 09/05/21 08:00 tablet Active Medications Generic Name Dose Route Start Last Admin Trade Name Freq PRN Reason Stop Dose Admin Acetaminophen 1,000 mg in 100 mls @ 400 mls/hr 12/28/21 20:42 12/29/21 07:39 Ofirmev IV 12/31/21 20:41 Infused Q8H PRN Infusion Pain or Fever Lactated Ringer's 1,000 mls @ 115 mls/hr 12/28/21 20:42 12/29/21 06:35 Lr IV 01/27/22 20:41 115 mls/hr .Q8H42M PHOEBE Administration Ketorolac Tromethamine 15 mg 12/28/21 20:42 12/29/21 11:06 Ketorolac Tromethamine 15 Mg/Ml Vial IV 01/02/22 20:41 15 mg Q8 PRN Administration Moderate Pain Tamsulosin HCl 0.4 mg 12/29/21 09:00 12/29/21 09:52 Tamsulosin Hcl 0.4 Mg Cap PO 01/28/22 08:59 0.4 mg QAM PHOEBE Administration NPO Date Last Intake of Fluids: 12/28/21 Time Last Intake of Fluids: 22:00 Last Intake of Fluids Comment: sip of water 0952 w/flomax Date Last Intake of Solids: 12/28/21 Time Last Intake of Solids: 20:00 Past Medical History Medical History Asthma childhood Contusion of foot Encounter for cosmetic procedure Encounter for cosmetic surgery size inconsistent with dates Flank pain in patient H/O acne vulgaris H/O renal calculi History of chicken pox Hx of migraines Hypokalemia Migraine without aura Paroxysmal SVT (supraventricular tachycardia) Right hip pain SOB (shortness of breath) 08/26 had echo for SOB, chest pain and palpitations- showed vena cava collapse due 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 Exercise / Class Metabolic Activity II 4-5 Yardwork/Stairs/Walk up hill Past Family History Family History Grandmother (Maternal) Diabetes Hypertension Gqvig-Xuljccofe-Moguv (WPW) pattern Grandmother (Paternal) Hypertrophic cardiomyopathy Stroke Father Hypertension Dyslipidemia Mitral valve prolapse Diabetes Other No pertinent family history in first degree relatives Denies family history of Ovarian cancer Prostate cancer Breast cancer Colorectal cancer Past Surgical History Surgical History H/O breast augmentation History of surgery on arm Ulnar nerve transposition S/P cystoscopy with ureteral stent placement Past Anesthesia History No Hx of Anesthesia Complications and No Family Hx of Anesthesia Complications History of PONV No Hx of PONV and No Hx of Motion Sickness Social History Smoking Status: Never smoker Do You Dip or Chew Tobacco: No Hx Alcohol Use: Yes Alcohol type: beer and wine alcohol intake frequency: other Alcohol Intake Frequency Comment: 1 beer or wine per week. Hx Substance Use: No substance use type: does not use Physical Exam Vital Signs Last Vital Signs Temp 36.7 C 12/29/21 14:17 Pulse 63 12/29/21 14:17 Resp 16 12/29/21 14:17 BP 102/87 12/29/21 14:17 Pulse Ox 100 12/29/21 14:17 ENMT Mouth: no dentition abnormality Thyromental Distance: > or= 3.5 Finger Breadths Mallampati Class: II Neck normal visual inspection Respiratory normal respiratory effort Auscultation: lungs clear to auscultation bilaterally Cardiovascular Rate/Rhythm: regular rate and regular rhythm Psychiatric Orientation: alert Testing Laboratory Results 12/29/21 07:19 12/29/21 07:19 Urine Color Yellow 12/28/21 17:12 Urine Appearance Clear (Clear) 12/28/21 17:12 Urine pH 7.0 (4.5-7.5) 12/28/21 17:12 Ur Specific Sherrill 1.009 (1.000-1.030) 12/28/21 17:12 Urine Protein Trace (Negative) H 12/28/21 17:12 Urine Glucose (UA) Negative (Negative) 12/28/21 17:12 Urine Ketones Negative (Negative) 12/28/21 17:12 Urine Nitrite Negative (Negative) 12/28/21 17:12 Ur Leukocyte Esterase 1+ (Negative) H 12/28/21 17:12 Urine WBC (Auto) 1-5 /hpf (0-5) 12/28/21 17:12 Urine RBC (Auto) 5-10 /hpf (0-4) H 12/28/21 17:12 U Hyaline Cast (Auto) 0 /lpf (0-5) 12/28/21 17:12 U Epithel Cells (Auto) 20-30 /lpf (0-5) H 12/28/21 17:12 Urine Bacteria (Auto) Negative (Negative) 12/28/21 17:12 12/28/21 17:14 POC Ur Test NEG
[2021-12-29] MEDS ORDERED: DIATRIZOATE MEGLUMINE 30% 100ML VIAL INSTIL ONE (15:28)
[2021-12-29] MEDS ORDERED: PROMETHAZINE HCL INJ 25 MG/ML 1 ML VIAL ONE (15:36)
[2021-12-29] MEDS ORDERED: DEXAMETHASONE SOD INJ 4 MG/ML VIAL ONE (15:37)
[2021-12-29] MEDS ORDERED: FAMOTIDINE/PF 20 MG/2 ML VIAL IV ONE (16:00)
--- NOTE | 2021-12-29 16:14 | Post Operative Brief Note ---
PG Immediate Post Op with CF Date of Surgery December 29, 2021 Pre & Post Diagnosis Operation Date: 12/29/21 10:20 Pre-Op Diagnosis: KIDNEY STONE Post-Op Diagnosis: KIDNEY STONE I identified the patient and participated in the time-out.: Yes Procedure Operation Date: 12/29/21 10:20 Actual Procedures p Cystoscopy, Bilateral Retrograde Pyelograms, Bilateral Stent Placement, Ureteroscopy, Laser Lithotripsy, Stone Basket Extraction(Bilateral) - Juliano Farmer MD Surgeon Juliano Farmer MD Organizational Effectiveness Consultant none Estimated Blood Loss 0 Findings See Below Stone visualized in distal left ureter, fragmented with laser lithotripsy and removed with wire basket and sent for stone analysis. Left ureteral stent left in place. Stone visualized in right renal pelvis, fragmented to dust and small stone fragments with laser lithotripsy. Right ureteral stent was left in place to allow for maximal stone passage. Specimens Specimen Description: A. Left ureteral stones for chemical analysis Drains Other (Bilateral 6 Indonesian by 24 cm double-J ureteral stents.) Complications none Disposition Disposition: Recovery Room
--- NOTE | 2021-12-29 16:35 | Operative Report ---
PG Post Operative Report Pre & Post Diagnosis Operation Date: 12/29/21 10:20 Pre-Op Diagnosis: KIDNEY STONE Post-Op Diagnosis: Left ureteral stone and right renal stone I identified the patient and participated in the time-out.: Yes Procedure Operation Date: 12/29/21 10:20 Actual Procedures p Cystoscopy, Bilateral Retrograde Pyelograms, Bilateral Stent Placement, Ureteroscopy, Laser Lithotripsy, Stone Basket Extraction(Bilateral) - Juliano Farmer MD Surgeon Juliano Farmer MD [employer] none Estimated Blood Loss 0 Findings See Below Left ureteral stone treated with laser lithotripsy and removed with wire basket. Successful left ureteral stent placement Right renal stone visualized in the renal pelvis, fragmented with laser lithotripsy. No large fragments were remaining. We will give her a chance of expulsion of these fragments with possibility of second look ureteroscopy. Successful right ureteral stent placement. Specimens Left ureteral stone Drains 6 Irish by 24 cm double-J ureteral stent bilaterally Anesthesia Type General Complications none Disposition Disposition: Recovery Room Indications This is a 31-year-old female who recently presented to the hospital with flank pain. She was found on CT scan to have a left ureteral stone and a right renal pelvic stone, both of which appeared to be obstructing. She is being brought to the OR for these bilateral stent placement and possible ureteroscopy and stone treatment. Description of Procedure The patient was identified in the holding area and informed consent was confirmed. She was taken to the operating room where anesthesia was initiated. She was placed in the dorsal lithotomy position with all pressure points appropriately padded. She was prepped and draped in the usual sterile fashion and a preoperative timeout was performed. A well-lubricated cystoscope was inserted per urethra and panendoscopy was performed. The urethra was normal in appearance. The bladder was of normal size with ureteral orifices in orthotopic position. The left ureteral orifice was identified and cannulated with a 5 Irish open-ended catheter. A retrograde pyelogram was performed demonstrating the ureter was overall normal in course and caliber. There were no obvious filling defects but there was a slight narrowing in the distal ureter. A 0.038" ZIPwire was advanced to the level of the kidney under fluoroscopic guidance. The semirigid ureteroscope was then inserted and advanced alongside the wire into the left ureter. At the level of the narrowing, I visualized the stone, approximately 5 to 6 mm in diameter, consistent with what was seen on CT scan. The 272 m holmium laser fiber was introduced and using low frequency, medium amplitude settings, the stone was dusted into smaller fragments. The Nitinol wire basket was then used to remove the fragments down to the level of the bladder. Once the stone was removed, the ureter was once again surveyed. There was some mucosal irritation at the site where the stone had been, and I elected to place a stent. Over the wire, a 6 Irish x 24 centimeter double-J ureteral stent was advanced. When the wire was removed, the proximal curl was visualized in the kidney with x-ray, and the distal curl visualized in the bladder with the cystoscope. The stone fragments were evacuated from the bladder and were sent for stone analysis labeled as right ureteral stone. I then turned my attention to the right side. In a similar fashion the right ureteral orifice was cannulated with a 5 Irish open-ended catheter. Retrograde pyelogram on the right side identified no strictures or filling defects in the ureter. There was a clear shadow suspicious for the stone over the right kidney. A zip wire was advanced to the right kidney under fluoroscopic evidence. Alongside the wire a semirigid ureteroscope was advanced and the ureter was surveyed. No stones were identified within the ureter. A second wire was placed through the scope. Over the second wire, a 36 cm 12-14 Irish ureteral access sheath was placed and advanced up to the proximal ureter. The flexible ureteroscope was then inserted and used to survey the kidney. A single stone was identified in the renal pelvis. It was approximately 1 cm in diameter, consistent with what was seen on the CT scan. The laser was again introduced and used to fragment the stone into smaller pieces. Once the pieces were decreasing in size they moved into some of the calyces. I was then able to use the laser to essentially "popcorn" the pieces until they were small enough that I thought they would be able to pass spontaneously. Once there were no obvious remaining large pieces, the access sheath was removed, surveying the ureter on the way out. There were no ureteral perforations or mucosal tears. Over the remaining wire, a 6 Irish by 24 cm double-J ureteral stent was advanced up to the right kidney. When the wire was removed, the proximal curl was visualized in the kidney with x-ray and the distal curl was visualized in the bladder with the cystoscope. At this point the bladder was drained and all instrumentation was removed. The patient was then awakened from anesthesia and was brought to the PACU in stable condition. I attest to the content of the Intraoperative Record and any orders documented therein. Any exceptions are noted below.
[2021-12-29] MEDS ORDERED: HYDROmorphone INJ 1 MG/ML SYRINGE ONE (16:42)
[2021-12-29] MEDS ORDERED: HYDROmorphone INJ 2 MG/ML SYR/VIAL IV PRN (16:54)
--- NOTE | 2021-12-29 17:15 | Fluoroscopy Report ---
FL retrograde includes kub HISTORY: 31 years-old Female B/L bilateral ureteral calculi COMPARISON: CT 12/28/2021 TECHNIQUE: 5 spot fluoroscopic images of the abdomen were obtained utilizing 14.8 seconds fluoroscopy time FINDINGS: Intrauterine device is present. Cannulation of the left ureter with retrograde injection of contrast. Proximal portion of the left ureteral stent appears in satisfactory positioning. Additionally, there is retrograde injection of contrast into the right ureter which demonstrates persistent hydroureter. Large calculus in the proximal right ureter is redemonstrated. The last image demonstrates a radiode nsity within the region of the right mid pole kidney suggestive of a calculus. The right ureteral cheikh nt proximal portion appears in satisfactory positioning. The distal portion of the stents were not im aged. IMPRESSION: Fluoroscopic assistance as above. ACT 112: Negative or not required by law. The above report was generated using voice recognition software. It may contain grammatical, syntax o r spelling errors. Electronically signed by: Rylan Cazares M.D. 12/29/2021 5:13 PM
--- NOTE | 2021-12-29 17:15 | Discharge Summary ---
Date of Service December 30, 2021 Admission HPI Per Admitting Provider 31 YOF with medical history of: Kidney stone with (underwent cysto/stenting), recent IUD placement 12/22). Patient comes to the EMD today for complaints of sharp stabbing pain in her right flank that was acute onset. This resulted in severe pain, nausea without vomiting, chills, and pain that radiated from her flank into her groin. There was no associated diarrhea. This occurred around 1500 when she went to urinate. There was no more blood in her urine than prior. As above she has had a IUD recently placed and has been spotting with this. In the EMD the patient had routine labs performed and UA. She is without WBC or fever. UA with RBC LE 1+ no bacteria and WBC 1-5. She also had CT scan of abdomen and Pelvis completed. This was interpreted as bilateral kidney stones with right > lt. Right is 13mm obstructing at UPJ and moderate/severe hydronephrosis, Left side is with 6mm obstructing stone above the vesicoureteral junction with mild left sided hydro. Patient will be admitted for pain control, nausea control, IVF and consultation with Urology. She will be kept NPO after midnight. Patient has had anesthesia before and reports postop nausea. She has no other co-morbidities. COVID test on admission is: NEGATIVE Principal Diagnosis Bilateral obstructing ureteral calculi s/p cystoscopy with bilateral stent placement and lithotripsy Discharge Exam GENERAL: 31 yo Well-developed, well-nourished WF. NAD. LUNGS: Clear to auscultation bilaterally. No W/R/R. CARDIOVASCULAR: Regular rate and rhythm. No M/G/R. No JVD. ABDOMEN: Soft, non-tender and non-distended. BS normoactive x 4 quad. : +CVA tenderness R>L EXTREMITIES: No edema. Non-tender. Peripheral pulses +2/4. NEUROLOGIC: A&O x3. PSYCHIATRIC: Cooperative. Appropriate mood and affect. SKIN: Warm, dry, intact. No rashes or lesions. Discharge Data Allergies Allergy/AdvReac Type Severity Reaction Status Date / Time tramadol Allergy Intermediate ITCHING Verified 12/08/21 16:05 Consultations 12/28/21 17:12 ED Decision to Admit Stat 12/28/21 20:42 Consult Urology Routine Procedures Performed Operation Date: 12/29/21 10:20 Actual Procedures p Cystoscopy, Bilateral Retrograde Pyelograms, Bilateral Stent Placement, Ureteroscopy, Laser Lithotripsy, Stone Basket Extraction(Bilateral) - Juliano Farmer MD Ordered Studies Abdomen/Pelvis CT 12/28/21 16:14 CT SCAN OF THE ABDOMEN AND PELVIS WITHOUT IV CONTRAST CLINICAL HISTORY: Right flank pain. COMPARISON STUDY: Abdominal CT dated 03/03/2021. TECHNIQUE: CT scan of the abdomen and pelvis is performed from the lung bases to the proximal femora. Images are reviewed in the axial, sagittal, and coronal planes. IV contrast was not administered for this examination. A dose lowering technique was utilized adhering to the principles of ALARA. CT DOSE: 280.40 mGy.cm FINDINGS: Lung bases: The heart is normal in size and without pericardial effusion. A 3 mm left lower lobe pulmonary nodule seen on image #44 is unchanged. This is doubtful significance in this age group. The lung bases are otherwise clear. Bilateral breast implants are partially visualized. Liver: The unenhanced liver is normal in size, contour, and attenuation. There is no intrahepatic biliary ductal dilatation. Gallbladder: Unremarkable. Spleen: Normal in size and attenuation. Pancreas: Unremarkable. Adrenal glands: Unremarkable. Kidneys: The unenhanced kidneys are normal in size. There is a 6 mm obstructing calculus just above the left vesicoureteral junction seen on image #361. This causes mild left-sided hydroureter. No left-sided hydronephrosis is seen. There is a 13 mm obstructing calculus at the right ureteropelvic junction seen on image #191. This causes moderate to severe right-sided hydronephrosis. No additional right renal calculi are identified. There are least 3 additional punctate nonobstructing left renal calculi. There is no evidence of contour deforming renal mass lesion. Abdominal vasculature: The abdominal aorta is normal in course and caliber. Bowel: There is moderate constipation. No bowel obstruction is seen. The appendix is well-visualized and normal. Peritoneum: There is no intraperitoneal free air or abdominal ascites. Lymphadenopathy: None. Pelvic viscera: The bladder, uterus, and adnexa are normal as visualized noting an intrauterine device in place. Trace free fluid is seen in the cul-de-sac. Skeletal structures: No lytic or blastic lesions are seen. IMPRESSION: 1. There is a 13 mm obstructing calculus at the right ureteropelvic junction. This causes moderate to severe right-sided hydronephrosis. 2. There is a 6 mm obstructing calculus just above the left vesicoureteral junction. This only causes mild left-sided hydroureter. 3. Additional nonobstructing left renal calculi as above. 4. Trace nonspecific free fluid in the cul-de-sac is likely physiologic. 5. Additional findings as above. ACT 112: Negative or not required by law. Electronically signed by: Fermin Martinez M.D. 12/28/2021 5:03 PM [facility] X-Ray 12/29/21 05:00 XR [facility]/Abdomen 1 view CLINICAL HISTORY: evaluate kidney stones TECHNIQUE: 1 view of the abdomen was obtained. Comparison: Comparison is made to CT abdomen pelvis 12/28/2021 FINDINGS: A 11 mm stone in the right proximal ureter is approximately unchanged in appearance from prior exam. The osseous structures are grossly unremarkable. The bowel gas pattern is nonobstructive. A moderate amount of stool is noted within the large bowel. IMPRESSION: Stable appearance of proximal right ureteric stone. ACT 112: Negative or not required by law. Electronically signed by: Chaz Ortiz M.D. 12/29/2021 9:11 AM Hospital Course (1) Hydronephrosis concurrent with and due to calculi of kidney and ureter: Kidney stone bilateral Right greater than left - right sided hydro with 13mm obstructing stone UPJ - left 6mm obstructing stone UVJ - LR ordered at 115 ml/hr - Flomax 0.4mg daily ordered - NPO for procedure today - Pain control tiered- Tylenol PO/ IV after MN, Toradol 15mg prn, Hydromorphone 0.5mg IV PRN - UA negative for infection - Urology consulted-taken for cysto with stent placement bilaterally and lithotripsy (2) Acute pain: secondary to above treated with meds Successful procedure for treatment of kidney stones - she is able to return home after she has recovered in PACU. can transport. Sent rx for Tamsulosin and Percocet (to be used sparingly and only if absolutely needed). Otherwise, she can use Ibuprofen. Follow up with urology in 2 weeks. She is medically stable for discharge. Plan has been d/w Dr. Sanchez who has also seen and evaluated this patient. Total Time Total Time Spent Total Time Spent (In Minutes): 35 minutes Discharge Plan Discharge Items Patient Disposition: Home - Self-Care Reason For Visit: KIDNEY STONE Discharge Diagnosis: kidneys stones Activity: Resume your previous activity Non-emergency contact: Primary Care Provider and Urologist Call non-emergency contact if: you have any medication questions and your symptoms worsen Follow-up/Referrals: Juliano Farmer MD [Physician] - 01/18/22 10:20 am () Moira Dewitt D.O. [Primary Care Provider] - Diet: Regular Addtl Attending Provider Instructions: You were hospitalized due kidney stones which were causing the flow of urine out of your kidneys to be blocked. Subsequently, you were take for a procedure today in order to have stents placed in your ureters and treat one of the stones. You have also been started on a medication called Flomax. This is to help relax the smooth muscle in your urinary tract to allow urine to flow better. A prescription for this medication has been sent to your pharmacy on file. Please take it as directed. A prescription for Percocet has been sent to your pharmacy. Only use this if ABSOLUTELY needed for severe pain (rated >7 out of 10). Use Tylenol or Ibuprofen first line if able. You CANNOT drive or operate any machinery while taking Percocet as it can slow your response time and impair your judgement. Remaining instructions are as outlined below. Please call Dr. Farmer office to schedule your follow up. Addtl Associate [employer] Provider Instructions: The surgery you had was bilateral ureteroscopy with laser lithotripsy and stent placement. We were able to completely break up and remove the stone on the left. The stone on the right was larger and although we were able to break it all up, there was still a fair amount of stone debris up in the right kidney. Hopefully will be able to pass all of this on your own, but we will plan to check an x-ray in about a week to see how much stone is remaining. Medications: please resume your normal medications as previously prescribed. For pain, it is ok to take tylenol alternated with ibuprofen, assuming you can take these medications otherwise. If you need stronger pain medication you can call the urology office. What to expect after your ureteroscopy and stone removal procedure: You may notice small pieces of stone or stone dust/gravel in your urine over the next few days. Drink plenty of liquids to help flush your system. You may notice some blood in your urine. As long as you are able to urinate, this is ok. You have ureteral stents in place -these will need to be removed. As long as the stents are in place, you may see some blood in the urine. You may have pain in your side when you urinate. When to call [facility] at [phone]: Fever of 101F or higher Heavy bleeding Pain that is not controlled with medicine Uncontrolled vomiting Problems urinating or inability to urinate Pending Studies at Discharge: No Stand-Alone Forms: My [facility] [employer], Work/School Release, Smoking Cessation Medications and DC Order Prescriptions: New tamsulosin 0.4 mg Capsule 0.4 mg PO QAM Qty: 30 RF: 0 docusate sodium 100 mg Capsule 100 mg PO BID Qty: 20 RF: 0 oxycodone-acetaminophen [Percocet] 5-325 mg tablet 1 tab PO Q6H PRN (Reason: pain (scale score 7-10)) Qty: 10 RF: 0 Continued magnesium oxide 250 mg magnesium Tablet 250 mg PO QAM RF: 0 KPN Tablet 1 tab PO QAM RF: 0 cholecalciferol (vitamin D3) [Vitamin D3] 50 mcg (2,000 unit) Capsule 50 mcg PO QAM RF: 0 riboflavin (vitamin B2) 400 mg Tablet 400 mg PO QAM RF: 0 Discharge Orders: Discharge Order (Routine); Ordered 12/30/21 Ordered By: Favian Parker/Other Patient Handouts: Managing Post-Op Pain at Home Admission Data Admit Date/Time: 12/28/21 18:27 Attending Provider: Favian Sanchez Admit Provider: Mihai Hanks Primary Care Provider: Moira Dewitt Other Providers: Mihai Hanks ; Eber Atkins Other Interventions: Discharge Summary Assessment (RN) Last Done: 12/30/21 14:42 Supervising Physician Co-Signing Physician Notes Patient was seen on 629 at 630. Patient is status post cystoscopy and was recovering from anesthesia with persistent renal colicky pain and nausea. Patient unable to reliably take p.o. medications and hydration subsequently kept overnight. Patient was seen again in the morning of December 30 at this point time and eaten breakfast and although having some pain it was controllable with oral medications. 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 Patient will continue home medications as prescribed below The patient appeared stable Vital signs as documented. Lungs are clear to auscultation and appear unlabored Cardiac exam, Rhythm is regular.. No murmurs, rubs or gallops. Abdominal exam reveals normal bowel sounds, soft non tender, no masses Extremities are nonedematous and both pedal pulses are normal. Neurologic exam is alert and oriented, no focal loss of strength or sensation Skin is without bruises or rashes Psychologically is without concerns for anxiety or depression. Continue follow-up with urology It required greater than 30 minutes to prepare this patient for discharge Coding Level of Care Code D/C DAY MANAGEMENT >30 MINS Diagnoses Hydronephrosis concurrent with and due to calculi of kidney and ureter N13.2 Acute pain R52
[2021-12-29] MEDS: DOCUSATE SODIUM 100 MG CAP PO SCH ×3 (17:50→21:35)
--- NOTE | 2021-12-29 18:14 | Anesthesiology Progress Note ---
Date of Service December 29, 2021 Anesthesia Post Procedure Vital Signs Vital Signs: Temp Pulse Pulse Resp BP BP Pulse Ox 12/29/21 18:00 36.6 C 57 L 14 121/77 99 12/29/21 17:35 36.6 C 61 14 118/78 100 12/29/21 17:25 65 13 114/69 100 12/29/21 17:15 36.4 C L 69 14 126/77 95 12/29/21 17:05 58 L 14 108/73 100 12/29/21 16:55 60 12 120/73 100 12/29/21 16:45 65 20 125/76 100 12/29/21 16:35 97 H 20 128/95 100 12/29/21 16:29 36.2 C L 87 15 120/76 100 12/29/21 14:17 36.7 C 63 16 102/87 100 12/29/21 07:28 36.4 C L 53 L 16 84/57 L 100 12/28/21 22:50 36.9 C 51 L 14 91/55 L 99 12/28/21 20:35 36.5 C 64 16 103/67 100 12/28/21 19:53 77 21 112/79 98 Pain Intensity Right Flank: Pain Intensity: 4 Transfer of Care Handoff Completed per policy Notes Mental Status: alert / awake / arousable Patient Amnestic to Procedure: Yes Nausea / Vomiting: adequately controlled Pain: adequately controlled Airway Patency, RR, SpO2: stable & adequate BP & HR: stable & adequate Hydration State: stable & adequate Anesthetic Complications: no major complications apparent
--- NOTE | 2021-12-29 18:26 | Hospitalist Progress Note ---
Date of Service December 29, 2021 Assessment & Plan (1) Hydronephrosis concurrent with and due to calculi of kidney and ureter: Plan: Kidney stone bilateral Right greater than left - right sided hydro with 13mm obstructing stone UPJ - left 6mm obstructing stone UVJ - LR continues due to nausea - Flomax 0.4mg daily ordered -Urology performed bilateral retrograde pyelograms with bilateral stent placement ureteroscopy laser lithotripsy and stone basket extraction by Dr. Farmer on 12/29/2021 - UA negative for infection -Patient recovering post procedure is in discomfort with mild nausea resultant need to stay another day for symptom control and assuring the patient can take oral intake and medications Admission and Anticipated Discharge Date Admission Date: December 28, 2021 Subjective Patient seen postoperatively she is fairly nauseous cannot eat and "has her pain ramping up". Patient does not feel able to tolerate oral intake to go home for pain medications or hydration Review of Systems Review of Systems: Moderate distress and fatigue no headache, no visual changes no speech or swallowing issues no chest pain, pressure or palpitations no shortness of breath, cough or wheezes Dull crampy lower abdominal pain, some nausea without vomiting, diarrhea or constipation Some dysuria and hematuria no focal joint pain or swelling no back pain, CVA tenderness or radicular pain no bruising, bleeding or rashes no focal signs of weakness or numbness or altered sensation no complaints of anxiety or depression.. Physical Exam Physical Exam: The patient appeared stable but appears nauseous and fatigued Vital signs as documented. Lungs are clear to auscultation and appear unlabored Cardiac exam, Rhythm is regular.. Abdominal exam reveals normal bowel sounds, soft and mildly tender to examination Extremities are nonedematous and both pedal pulses are normal. Neurologic exam is alert and oriented, falls asleep easily claims to be nauseous no focal loss of strength or sensation Results & Data Results & Data ([facility]) Vital Signs (Past 12 Hours) Vital Signs Temp Pulse Pulse Resp BP BP Pulse Ox 12/29/21 18:00 97.9 F 57 L 14 121/77 99 12/29/21 17:35 97.9 F 61 14 118/78 100 12/29/21 17:25 65 13 114/69 100 12/29/21 17:15 97.5 F L 69 14 126/77 95 12/29/21 17:05 58 L 14 108/73 100 12/29/21 16:55 60 12 120/73 100 12/29/21 16:45 65 20 125/76 100 12/29/21 16:35 97 H 20 128/95 100 12/29/21 16:29 97.2 F L 87 15 120/76 100 12/29/21 14:17 98.1 F 63 16 102/87 100 12/29/21 07:28 97.5 F L 53 L 16 84/57 L 100 PG Care Time/CCT Total # of Minutes Spent Total Time Spent with Patient: Total time spent is greater than 50% in coordination of care (as documented) at patient's floor/unit and/or counseling patient: Coding Level of Care Code 84952 Subseq Hosp Care Lvl 2 Diagnoses Hydronephrosis concurrent with and due to calculi of kidney and ureter N13.2
[2021-12-29] MEDS: HYDROmorphone INJ 0.5 MG/0.5 ML SYR IV PRN (18:48)
[2021-12-30] MEDS: KETOROLAC TROMETHAMINE 15 MG/ML VIAL IV PRN ×2 (00:04→12:28)
[2021-12-30] MEDS: HYDROmorphone INJ 0.5 MG/0.5 ML SYR IV PRN (00:51)
[2021-12-30] MEDS ORDERED: HYDROmorphone INJ 0.5 MG/0.5 ML SYR IV STA (02:57)
[2021-12-30] MEDS ORDERED: POLYETHYLENE (MIRALAX) 17 GM PACK PO PRN (03:00)
[2021-12-30] MEDS: LACTATED RINGER'S 1,000 ML IV SCH (05:33)
[2021-12-30 07:10] LABS: Basophils # (auto) 0.02 K/uL (0-0.2); Basophils % (auto) 0.2 %; Eosinophils # (auto) 0.02 K/uL (0-0.5); Eosinophils % (auto) 0.2 %; Hematocrit (blood only) 38.1 % (37-47); Immature Granulocytes # (auto) 0.01 K/uL (0.00-0.02); Immature Granulocytes % (auto) 0.1 %; Lymphocytes # (auto) 1.86 K/uL (1.2-3.4); Lymphocytes % (auto) 19.8 %; Mean Corpuscular Hgb Conc 34.1 g/dL (32-36); Mean Corpuscular Volume 93.8 fL (80-100); Mean Platelet Volume 9.5 fL (7.4-10.4); Monocytes # (auto) 0.58 K/uL (0.11-0.59); Monocytes % (auto) 6.2 %; Neutrophils # (auto) 6.91 K/uL (1.4-6.5); Neutrophils % (auto) 73.5 %; Platelet Count 317 K/uL (130-400); RDW Coefficient of Variation 12.7 % (11.5-14.5); RDW Standard Deviation 43.8 fL (36.4-46.3); Red Blood Count 4.06 M/uL (4.2-5.4)
[2021-12-30 07:29] LABS: BUN Creatinine Ratio 11.5 (10-20); Calcium 8.6 mg/dl (8.5-10.1); Creatinine Clr Calc Pharmacy 71.8 ml/min; Est GFR (African American) 90.1 ml/min; Est GFR (Non-African American) 77.7 ml/min; Magnesium 1.9 mg/dl (1.7-2.4); Potassium 4.4 mmol/L (3.5-5.1)
--- NOTE | 2021-12-30 07:37 | Urology Progress Note ---
Date of Service December 30, 2021 Assessment & Plan (1) Nephrolithiasis: Plan: Doing well, POD #1 from bilateral ureteroscopy with laser lithotripsy and bilateral stent placement Okay for discharge from the urology perspective Would recommend pain control with Tylenol, ibuprofen, tamsulosin, Pyridium. narcotics for breakthrough pain. Low suspicion for UTI at this point, probably does not need antibiotics on discharge. Urology will arrange outpatient follow-up with [facility] and potential second look ureteroscopy. We will sign off for now, please call with any questions or concerns. Admission and Anticipated Discharge Date Admission Date: December 28, 2021 Subjective Had a rough night, some cramping from stance Denies fevers or chills, nausea or vomiting Has not been up ambulating very much Review of Systems Constitutional: No fevers or chills Genitourinary: No dysuria, reports urinary frequency Physical Exam Physical Exam: resting in bed Respiratory: Breathing comfortably on room air Results & Data ([facility]) Vital Signs (Past 12 Hours) Vital Signs Temp Pulse Pulse Resp BP Pulse Ox 12/30/21 02:10 36.4 C L 58 L 16 105/66 100 12/29/21 23:04 36.4 C L 64 16 104/67 92 12/29/21 20:30 36.8 C 79 16 105/59 L 96 12/29/21 19:38 36.6 C 83 16 99/63 L 98 PG Care Time/CCT Total # of Minutes Spent Total Time Spent with Patient: Total time spent is greater than 50% in coordination of care (as documented) at patient's floor/unit and/or counseling patient: Coding Level of Care Code 09946 Subseq Hosp Care Lvl 1 Diagnoses Nephrolithiasis N20.0
[2021-12-30] MEDS: TAMSULOSIN HCL 0.4 MG CAP PO SCH (08:30)
[2021-12-30] MEDS: DOCUSATE SODIUM 100 MG CAP PO SCH (10:40)
== END 2021-12-30 16:15 | disposition home or self-care (01) | DRG 661 ==
LOC: ED 15:58 → SUATTDRO 18:27 → 3W 18:27